=== PATIENT | male | born 1940 | race Caucasian/White ===

== ENCOUNTER 2017-10-06 10:10 | Inpatient (IN) | payer MEDICARE, BC ==
[2017-10-06] MEDS ORDERED: ONDANSETRON 4 MG/2 ML VIAL IVP STA (10:39)
[2017-10-06] MEDS ORDERED: SODIUM CHLORIDE 0.9% 1,000 ML IV STA ×2 (10:39)
[2017-10-06] MEDS ORDERED: MORPHINE SULFATE 2 MG/ML SYRINGE IV STA (10:39)
[2017-10-06] MEDS ORDERED: methylPREDNISolone SOD SUCCI 125 MG/2 ML VIAL IV STA (10:40)
[2017-10-06] MEDS ORDERED: diphenhydrAMINE 50 MG/ML 1 ML VIAL IVP STA (10:41)
[2017-10-06] MEDS ORDERED: FAMOTIDINE 20 MG/2 ML VIAL IV STA (10:41)
[2017-10-06 11:25] LABS: Albumin 3.9 g/dL (3.5-5.0); Basophils % (A) 0 %; Calcium 9.4 mg/dL (8.4-10.2); Eosinophils # (A) 0.1 k/uL (0-0.7); Eosinophils % (A) 1 %; HGB 15.3 gm/dL (13.0-17.5); Lymphocytes # (A) 0.3 k/uL (1.0-4.8); Lymphocytes % (A) 3 %; MCH 32.3 pg (25.0-35.0); MCHC 34.7 g/dL (31.0-37.0); MCV 93.1 fL (80.0-100.0); Monocytes # (A) 0.1 k/uL (0-1.0); Monocytes % (A) 2 %; Neutrophils # (A) 8.3 k/uL (1.3-7.7); Neutrophils % (A) 94 %; Platelet Count 179 k/uL (150-450); Potassium 4.6 mmol/L (3.5-5.1); RBC 4.73 m/uL (4.30-5.90); RDW 13.3 % (11.5-15.5); Total Bilirubin 3.8 mg/dL (0.2-1.3); Total Protein 6.6 g/dL (6.3-8.2); WBC 8.8 k/uL (3.8-10.6)
--- NOTE | 2017-10-06 11:57 | ED ---
Abdominal Pain HPI - General Chief Complaint: Abdominal Pain Stated Complaint: Abd Pain Time Seen by Provider: 10/06/17 10:29 Source: patient Mode of arrival: ambulatory Limitations: no limitations - History of Present Illness Initial Comments: 7 years old male was seen at urgent care this morning they felt he needs to be sorted out for gallbladder disease he has abdominal pain and the epigastric pain for last 3 days been nauseous throughout twice has a history of colon cancer and had a partial colectomy done years ago. He has been moving his bowels well he denies any chest pain no shortness of breath no pleuritic chest pain had a fever and chills pain right now is 8/10 system is unremarkable - Related Data Home Medications Medication Instructions Recorded Confirmed Benazepril [Lotensin] 40 mg PO DAILY 12/06/15 10/06/17 amLODIPine BESYLATE [Norvasc] 10 mg PO DAILY 12/06/15 10/06/17 Metoprolol Succinate [Toprol XL] 25 mg PO DAILY 10/06/17 10/06/17 Ranitidine HCl 150 mg PO HS 10/06/17 10/06/17 Allergies Allergy/AdvReac Type Severity Reaction Status Date / Time povidone-iodine Allergy Rash/Hives Verified 10/06/17 10:15 [From Betadine] soap [From Betadine] Allergy Rash/Hives Verified 10/06/17 10:15 Review of Systems ROS Statement: Those systems with pertinent positive or pertinent negative responses have been documented in the HPI. ROS Other: All systems not noted in ROS Statement are negative. Past Medical History Past Medical History: Cancer, GERD/Reflux, Hypertension Additional Past Medical History / Comment(s): Hx. of colon cancer dx. in 2012. States did not need chemo or radiation therapy.HAD PNE VACCINE AFTER AGE 67 NOT SURE OF DATE. History of Any Multi-Drug Resistant Organisms: None Reported Past Surgical History: Bowel Resection, Orthopedic Surgery Additional Past Surgical History / Comment(s): Rotator cuff R shoulder, surgery for colon cancer.umb hernia repair Past Anesthesia/Blood Transfusion Reactions: No Reported Reaction Past Psychological History: No Psychological Hx Reported Smoking Status: Former smoker Past Alcohol Use History: None Reported, Rare Past Drug Use History: None Reported - Past Family History Mother Family Medical History: Myocardial Infarction ([place]) Additional Family Medical History / Comment(s): mom is age 95 Sister(s) Family Medical History: CVA/TIA Father Additional Family Medical History / Comment(s): WHEN PT WAS 18 MONTHS OLD- ELECTROCUTED AT WORK General Exam - General Exam Comments Initial Comments: General: The patient is awake and alert, in no distress, and does not appear acutely ill. Skin: Skin is warm and dry and no rashes or lesions are noted. Eye: Pupils are equal, round and reactive to light, extra-ocular movements are intact; there is normal conjunctiva bilaterally. Ears, nose, mouth and throat: There are moist mucous membranes and no oral lesions. Neck: The neck is supple, there is no tenderness or JVD. Cardiovascular: There is a regular rate and rhythm. No murmur, rub or gallop is appreciated. Respiratory: To auscultation bilateral, no wheezing no rhonchi no distress respiratory farris noticed Gastrointestinal: Tender in epigastric area tender over the right quadrant area and actually she is tender on the right half of the abdomen right from the right lower quadrant. Right upper quadrant area positive bowel sounds no guarding no rebounds no signs of peritonitis at this point Back: There is no tenderness to palpation in the midline. There is no obvious deformity. Musculoskeletal: Normal ROM, no tenderness, There is no pedal edema. There is no calf tenderness or swelling. No cords were appreciated. Neurological: CN II-XII intact, Cranial nerves III through XII are intact. There are no obvious motor or sensory deficits. Coordination appears grossly intact. Speech is normal. Psychiatric: Cooperative, appropriate mood & affect, normal judgment. Limitations: no limitations Course Vital Signs 10/06/17 10:12 Temperature 98.4 F Pulse Rate 99 Respiratory 18 Rate Blood Pressure 150/61 O2 Sat by Pulse [address] reports are pending at this point CBC is normal, LFTs elevated total bili is elevated is 3.8 ALT is 108 AST is 203 serum creatinine is 1.[address] report is available disposition be finalized Dr. Rico paced at term 1235, CT of the abdomen is reviewed right from the prostate and now a question of a mass? acute cholecystitis all these financial diagnosis would be discussed with the Dr. Le Medical Decision Making - Lab Data Result diagrams: 10/06/17 11:03 10/06/17 11:03 Lab Results 06/23/18 06/23/18 06/23/18 Range/Units 11:03 11:03 11:55 WBC 8.8 (3.8-10.6) k/uL RBC 4.73 (4.30-5.90) m/uL Hgb 15.3 (13.0-17.5) gm/dL Hct 44.0 (39.0-53.0) % MCV 93.1 (80.0-100.0) fL MCH 32.3 (25.0-35.0) pg MCHC 34.7 (31.0-37.0) g/dL RDW 13.3 (11.5-15.5) % Plt Count 179 (150-450) k/uL Neutrophils % 94 % Lymphocytes % 3 % Monocytes % 2 % Eosinophils % 1 % Basophils % 0 % Neutrophils # 8.3 H (1.3-7.7) k/uL Lymphocytes # 0.3 L (1.0-4.8) k/uL Monocytes # 0.1 (0-1.0) k/uL Eosinophils # 0.1 (0-0.7) k/uL Basophils # 0.0 (0-0.2) k/uL Sodium 136 L (137-145) mmol/L Potassium 4.6 (3.5-5.1) mmol/L Chloride 97 L (98-107) mmol/L Carbon Dioxide 26 (22-30) mmol/L Anion Gap 13 mmol/L BUN 16 (9-20) mg/dL Creatinine 1.33 H (0.66-1.25) mg/dL Est GFR (CKD-EPI)AfAm 60 (>60 ml/min/1.73 sqM) Est GFR (CKD-EPI)NonAf 52 (>60 ml/min/1.73 sqM) Glucose 152 H (74-99) mg/dL Calcium 9.4 (8.4-10.2) mg/dL Total Bilirubin 3.8 H (0.2-1.3) mg/dL AST 203 H (17-59) U/L ALT 108 H (21-72) U/L Alkaline Phosphatase 110 (38-126) U/L Total Protein 6.6 (6.3-8.2) g/dL Albumin 3.9 (3.5-5.0) g/dL Amylase 33 (30-110) U/L Lipase 64 (23-300) U/L Urine Color Yellow Urine Appearance Clear (Clear) Urine pH 6.0 (5.0-8.0) Ur Specific Oneco 1.035 (1.001-1.035) Urine Protein 2+ H (Negative) Urine Glucose (UA) Negative (Negative) Urine Ketones Trace H (Negative) Urine Blood Small H (Negative) Urine Nitrite Negative (Negative) Urine Bilirubin 1+ H (Negative) Urine Urobilinogen <2.0 (<2.0) mg/dL Ur Leukocyte Esterase Negative (Negative) Urine RBC 1 (0-5) /hpf Urine WBC 1 (0-5) /hpf Hyaline Casts 1 (0-2) /lpf Urine Mucus Occasional H (None) /hpf Disposition Clinical Impression: Acute cholecystitis, Duodenitis Disposition: ADMITTED IP TO THIS HOSP Condition: Good Referrals: Navid Burleson MD [Primary Care Provider] - 1-2 days
[2017-10-06 12:15] LABS: Appearance,Urine Clear (Clear); Bilirubin,Urine 1+ (Negative); Blood,Urine Small (Negative); Color,Urine Yellow; Glucose,Urine (UA) Negative (Negative); Hyaline Casts,Urine 1 /lpf (0-2); Ketones,Urine Trace (Negative); Leukocyte Esterase,Urine Negative (Negative); Mucus,Urine Occasional /hpf; Nitrite,Urine Negative (Negative); Protein,Urine 2+ (Negative); RBC,Urine 1 /hpf (0-5); Specific Gravity,Urine 1.035 (1.001-1.035); Urobilinogen,Urine <2.0 mg/dL (<2.0); WBC,Urine 1 /hpf (0-5)
--- NOTE | 2017-10-06 12:20 | CT ---
EXAMINATION TYPE: CT abdomen pelvis w con DATE OF EXAM: 10/06/2017 COMPARISON: 10/12/2015 HISTORY: 77-year-old male complains of generalized abdominal pains, nausea, vomiting, and diarrhea. TECHNIQUE: Contiguous axial scanning of the abdomen and pelvis following administration of 100 ml Iso kaitlin 300 IV contrast. Delayed images through the kidneys and coronal/sagittal reconstructions perform ed. CT DLP: 979.2 mGycm Automated exposure control for dose reduction was used. FINDINGS: Heart normal size without pericardial effusion. Strandy areas of atelectasis in the lung bases. No pl eural effusion. Small hiatal hernia. No focal liver lesion or biliary ductal dilatation. Portal venous system is patent. The gallbladder is hydropic measuring 4.4 cm wide with moderate to severe surrounding inflammatory fa t stranding in the right upper quadrant and some mild tracking edema. There is some focal mural based thickening along the fundus of the gallbladder measuring 2.4 cm. There is additional wall thickening of the second portion of the duodenum. Incidentally, there is a d iverticulum projecting into the pancreatic head region. Adrenal glands, kidneys, spleen, and atrophic pancreas show no gross quality. A prominent 1.3 cm portacaval lymph node remains not enlarged by CT size criteria. Alanna mesentery unchanged from 2016. No dilated small bowel, free fluid, or free air. Bowel resection and anastomosis changes at the right lower quadrant likely ileocolonic anastomosis. S cattered mild stool burden and mild diverticulosis of the sigmoid colon. Rectus diastases of the supraumbilical portion measuring 8.0 cm wide. Bladder partially distended. Prostate gland is enlarged measuring 6.1 cm wide. No abnormal fluid satish ection in the pelvis or pelvic lymphadenopathy. Bones: Degenerative changes of the hips. No osseous destructive process. IMPRESSION: 1. HYDROPIC GALLBLADDER WITH MODERATE TO SEVERE SURROUNDING INFLAMMATORY CHANGES IN THE RIGHT UPPER Q UADRANT. CORRELATE FOR ACUTE CHOLECYSTITIS. 2. THE ADJACENT SECOND PORTION OF THE DUODENUM IS ALSO THICKENED. THIS COULD BE REACTIVE INFLAMMATION . ACTIVE PEPTIC ULCER DISEASE AND DUODENITIS IS AN ALTERNATIVE CONSIDERATION FOR THE RIGHT UPPER QUAD RANT INFLAMMATION. 3. FOCAL 2.4 CM WALL THICKENING AT THE GALLBLADDER FUNDUS COULD REPRESENT ADENOMYOMATOSIS OR SMALL EA RLY NEOPLASM. 4. PROSTATOMEGALY (6.1 CM WIDE), MILD SIGMOID DIVERTICULOSIS, AND SMALL HIATAL HERNIA.
[2017-10-06] MEDS ORDERED: SODIUM CHLORIDE 0.9% 1,000 ML IV ONE (12:39)
[2017-10-06] MEDS ORDERED: PIPERACILLIN-TAZOBACTAM 3.375 GM in DEXTROSE/WATER 1 50ML.BAG IVPB STA (12:39)
[2017-10-06] MEDS ORDERED: metroNIDAZOLE-NS PMX 500 MG in SALINE 1 100ML.BAG IVPB STA (12:40)
[2017-10-06] MEDS ORDERED: NALOXONE 0.4 MG/ML 1 ML VIAL IV PRN (12:43)
[2017-10-06] MEDS ORDERED: ONDANSETRON 4 MG/2 ML VIAL IVP PRN (12:43)
[2017-10-06] MEDS ORDERED: HYDROmorphone 0.5 MG/0.5 ML SYRINGE IVP PRN (12:43)
[2017-10-06] MEDS ORDERED: 0.9% NACL WITH KCL 20 MEQ/L 1,000 ML IV SCH (13:30)
[2017-10-06 14:03] VITALS: BMI 30.9
[2017-10-06] MEDS: SODIUM CHLORIDE 0.9% 1,000 ML IV SCH (14:40)
--- NOTE | 2017-10-06 17:50 | P.GSCN ---
History of Present Illness Consult date: 10/06/17 History of present illness: 77-year-old male presents to the emergency department with complaints of abdominal pain. He states that the pain is mostly in his epigastrium and right upper quadrant. He does complain of some occasional radiation to his back and right shoulder. He complains of nausea and episodes of emesis secondary to this pain. He states that he believes he has had pain like this previously that resolved on its own. He states he has never been told he has had any gallbladder disease. He does have a history of colon cancer and has had colon resection and is up-to-date with colonoscopy. He currently states he is feeling comfortable. He denied any fevers, chills, chest pain or shortness of breath. The patient did have a workup in the emergency department that does show inflammatory changes around the gallbladder and duodenal bulb. He also was noted to have an elevated total bilirubin of 3.8 and transaminitis. He has no additional complaints at this time. Review of Systems All systems: negative Past Medical History Past Medical History: Cancer, GERD/Reflux, Hypertension Additional Past Medical History / Comment(s): Hx. of colon cancer dx. in 2012. States did not need chemo or radiation therapy.HAD PNE VACCINE AFTER AGE 67 NOT SURE OF DATE. History of Any Multi-Drug Resistant Organisms: None Reported Past Surgical History: Bowel Resection, Orthopedic Surgery Additional Past Surgical History / Comment(s): Rotator cuff R shoulder 2001, surgery for colon cancer.hernia repair Past Anesthesia/Blood Transfusion Reactions: No Reported Reaction Past Psychological History: No Psychological Hx Reported Smoking Status: Former smoker Past Alcohol Use History: None Reported, Rare Additional Past Alcohol Use History / Comment(s): Quit smoking in 1971, heavy smoker @ times. Started as a teenager. Past Drug Use History: None Reported - Past Family History Mother Family Medical History: Hypertension, Myocardial Infarction ([place]), Thyroid Disorder Additional Family Medical History / Comment(s): mom is age 97 Sister(s) Family Medical History: CVA/TIA Father Additional Family Medical History / Comment(s): WHEN PT WAS 18 MONTHS OLD- ELECTROCUTED AT WORK Medications and Allergies Home Medications Medication Instructions Recorded Confirmed Type Benazepril [Lotensin] 40 mg PO DAILY 12/06/15 10/06/17 History amLODIPine BESYLATE [Norvasc] 10 mg PO DAILY 12/06/15 10/06/17 History Metoprolol Succinate [Toprol XL] 25 mg PO DAILY 10/06/17 10/06/17 History Multivitamins, Thera [Multivitamin 1 tab PO DAILY 10/06/17 10/06/17 History (formulary)] Ranitidine HCl 150 mg PO BID 10/06/17 10/06/17 History Allergies Allergy/AdvReac Type Severity Reaction Status Date / Time povidone-iodine Allergy Rash/Hives Verified 10/06/17 14:05 [From Betadine] soap [From Betadine] Allergy Rash/Hives Verified 10/06/17 14:05 Surgical - Exam Osteopathic Statement: *. No significant issues noted on an osteopathic structural exam other than those noted in the History and Physical/Consult. Vital Signs Temp Pulse Resp BP Pulse Ox 98.4 F 99 18 150/61 98 10/06/17 10:12 10/06/17 10:12 10/06/17 10:12 10/06/17 10:12 10/06/17 10:12 - General well nourished, no distress - Eyes normal ocular movement - ENT normal mucosa, no hearing loss - Neck no masses, trachea midline - Respiratory No difficulty with respiration - Abdomen Soft, tender in epigastrium and right upper quadrant, mildly distended, no rebound, no guarding, does have previous surgical scars and midline and some apparent laparoscopic incisions that have healed well - Neurologic normal sensation - Psychiatric oriented to time, oriented to person, oriented to place Results - Labs 10/06/17 11:03 10/06/17 11:03 Abnormal Lab Results - Last 24 Hours (Table) 10/06/17 10/06/17 10/06/17 Range/Units 11:03 11:03 11:55 Neutrophils # 8.3 H (1.3-7.7) k/uL Lymphocytes # 0.3 L (1.0-4.8) k/uL Sodium 136 L (137-145) mmol/L Chloride 97 L (98-107) mmol/L Creatinine 1.33 H (0.66-1.25) mg/dL Glucose 152 H (74-99) mg/dL Total Bilirubin 3.8 H (0.2-1.3) mg/dL AST 203 H (17-59) U/L ALT 108 H (21-72) U/L Urine Protein 2+ H (Negative) Urine Ketones Trace H (Negative) Urine Blood Small H (Negative) Urine Bilirubin 1+ H (Negative) Urine Mucus Occasional H (None) /hpf Diabetes panel 10/06/17 Range/Units 11:03 Sodium 136 L (137-145) mmol/L Potassium 4.6 (3.5-5.1) mmol/L Chloride 97 L (98-107) mmol/L Carbon Dioxide 26 (22-30) mmol/L BUN 16 (9-20) mg/dL Creatinine 1.33 H (0.66-1.25) mg/dL Glucose 152 H (74-99) mg/dL Calcium 9.4 (8.4-10.2) mg/dL AST 203 H (17-59) U/L ALT 108 H (21-72) U/L Alkaline Phosphatase 110 (38-126) U/L Total Protein 6.6 (6.3-8.2) g/dL Albumin 3.9 (3.5-5.0) g/dL Calcium panel 10/06/17 Range/Units 11:03 Calcium 9.4 (8.4-10.2) mg/dL Albumin 3.9 (3.5-5.0) g/dL Pituitary panel 10/06/17 Range/Units 11:03 Sodium 136 L (137-145) mmol/L Potassium 4.6 (3.5-5.1) mmol/L Chloride 97 L (98-107) mmol/L Carbon Dioxide 26 (22-30) mmol/L BUN 16 (9-20) mg/dL Creatinine 1.33 H (0.66-1.25) mg/dL Glucose 152 H (74-99) mg/dL Calcium 9.4 (8.4-10.2) mg/dL Adrenal panel 10/06/17 Range/Units 11:03 Sodium 136 L (137-145) mmol/L Potassium 4.6 (3.5-5.1) mmol/L Chloride 97 L (98-107) mmol/L Carbon Dioxide 26 (22-30) mmol/L BUN 16 (9-20) mg/dL Creatinine 1.33 H (0.66-1.25) mg/dL Glucose 152 H (74-99) mg/dL Calcium 9.4 (8.4-10.2) mg/dL Total Bilirubin 3.8 H (0.2-1.3) mg/dL AST 203 H (17-59) U/L ALT 108 H (21-72) U/L Alkaline Phosphatase 110 (38-126) U/L Total Protein 6.6 (6.3-8.2) g/dL Albumin 3.9 (3.5-5.0) g/dL - Imaging CT scan - abdomen: report reviewed CT scan - pelvis: report reviewed Assessment and Plan (1) Acute cholecystitis Narrative/Plan: 77-year-old male with acute cholecystitis - Due to elevated total bilirubin, GI evaluation is pending for a possibility of choledocholithiasis - Continue antibiotics at this time - Keep patient nothing by mouth - I did discuss plan for surgical treatment with the patient and the patient's family. This will be pending any GI intervention that may be necessary. - Will continue to follow and make recommendations. Thank you for this consultation, I look forward in providing in this patient's care. Current Visit: Yes Status: Acute Code(s): K81.0 - ACUTE CHOLECYSTITIS SNOMED Code(s): 83569458
[2017-10-06] MEDS ORDERED: TEMAZEPAM 15 MG CAP PO PRN (18:04)
[2017-10-06] MEDS ORDERED: ALPRAZolam 0.25 MG TAB PO PRN (18:04)
[2017-10-06] MEDS: FAMOTIDINE 20 MG TAB PO SCH (20:41)
[2017-10-06] MEDS: HEPARIN SODIUM,PORCINE 5,000 UNIT/ML 1 ML VIAL SQ SCH (20:42)
[2017-10-06] MEDS: PIPERACILLIN-TAZOBACTAM 3.375 GM in DEXTROSE/WATER 1 50ML.BAG IVPB SCH (21:07)
[2017-10-07] MEDS: SODIUM CHLORIDE 0.9% 1,000 ML IV SCH ×3 (03:37→20:31)
[2017-10-07 07:11] LABS: Basophils % (A) 0 %; Eosinophils # (A) 0.1 k/uL (0-0.7); Eosinophils % (A) 1 %; HCT 40.2 % (39.0-53.0); HGB 13.8 gm/dL (13.0-17.5); Lymphocytes # (A) 0.4 k/uL (1.0-4.8); Lymphocytes % (A) 2 %; MCH 32.2 pg (25.0-35.0); MCHC 34.2 g/dL (31.0-37.0); MCV 94.1 fL (80.0-100.0); Mean Platelet Volume 7.5; Monocytes # (A) 0.5 k/uL (0-1.0); Monocytes % (A) 3 %; Neutrophils % (A) 94 %; Platelet Count 162 k/uL (150-450); RBC 4.28 m/uL (4.30-5.90); RDW 13.5 % (11.5-15.5); WBC 19.2 k/uL (3.8-10.6)
[2017-10-07 07:34] LABS: Albumin 3.1 g/dL (3.5-5.0); Bilirubin, Conjugated 2.6 mg/dL (0.0-0.3); Bilirubin, Delta 1.3 mg/dL (0.0-0.2); Bilirubin,Unconjugated 1.7 mg/dL (0.0-1.1); Calcium 8.3 mg/dL (8.4-10.2); Potassium 4.4 mmol/L (3.5-5.1); Total Bilirubin 5.6 mg/dL (0.2-1.3); Total Protein 5.6 g/dL (6.3-8.2)
--- NOTE | 2017-10-07 07:58 | HP ---
HISTORY AND PHYSICAL DATE OF SERVICE: 10/06/2017 CHIEF COMPLAINT: Abdominal pain. HISTORY OF PRESENT ILLNESS: This 77-year-old gentleman with a past medical history of multiple medical problems including history of hypertension, history of GERD, history of bowel resection, history of nicotine dependence being followed by Dr. Burleson in the outpatient setting, was complaining of abdominal pain. The patient came to [facility] and admitted for further evaluation and treatment. Evaluation in the ER showed elevated LFTs and the patient also had a CT scan of the abdomen and pelvis which showed evidence of hydropic gallbladder with moderate to severe surrounding inflammatory changes and the patient was admitted for further evaluation and treatment. There is no history of any fever, rigors. No history of headache, loss of consciousness, seizures. PAST MEDICAL HISTORY: History of GERD, hypertension, history of colon cancer. MEDICATIONS: Prior to admission, home medications are: 1. Norvasc 10 mg p.o. daily. 2. Ranitidine 150 mg b.i.d. 3. Multivitamins one p.o. daily. 4. Toprol-XL 225 mg daily. 5. 40 mg daily. ALLERGIES: IODINE and . FAMILY HISTORY: History of hypertension, myocardial infarction and hypothyroidism. SOCIAL HISTORY: Previous history of smoking. No history of current smoking or alcohol intake. REVIEW OF SYSTEMS: ENT: No diminished hearing or vision. CARDIOVASCULAR: No angina or palpitations. RESPIRATORY: As mentioned earlier. GI no nausea. : No dysuria. NERVOUS SYSTEM: No numbness or weakness. ALLERGY/ IMMUNOLOGY: No asthma or hay fever. MUSCULOSKELETAL: As mentioned earlier. HEMATOLOGY/ONCOLOGY: No history of anemia. ENDOCRINE: No history of diabetes or hypothyroidism. CONSTITUTIONAL: As mentioned earlier. DERMATOLOGY: Negative. RHEUMATOLOGY: Negative. PSYCHIATRIC: As mentioned earlier. PHYSICAL EXAMINATION: Alert, oriented times three, pulse 71, blood pressure 105/54, respirations 16, temperature is 97 degrees, pulse ox 91% on room air. HEENT is conjunctivae normal. Oral mucosa moist. Neck is no jugular venous distention. No carotid bruits. No lymph node enlargement. Cardiovascular S1-S2 muffled. No S3, no S4. Respiratory: Breath sounds diminished in the bases. No rhonchi and no crackles. ABDOMEN: Soft. Mild diffuse tenderness in the right upper quadrant present. No guarding. No rigidity. McBurney point tenderness present. No ascites. Bowel sounds present. LEGS: No edema and no swelling. NERVOUS SYSTEM: Higher functions as mentioned earlier, moves all 4 limbs, no focal motor or sensory deficits. Lymphatics: No lymph nodes palpable in the neck, axillae or groin. SKIN: No ulcer, rash or bleeding. LABS: CBC within normal limits. Cat scan noted. Sodium 136, total bilirubin 3.8, AST is 203 and ALT is 108. Alkaline phosphatase normal. ASSESSMENT: 1. Acute cholecystitis. 2. Elevated bilirubin with increased AST and ALT. 3. Hyponatremia. 4. History of gastroesophageal reflux disease. 5. Hypertension. 6. History of colon cancer. 7. History of bowel resection. 8. History of nicotine dependence. RECOMMENDATIONS AND DISCUSSION: In this 77-year-old gentleman who presented with multiple complex medical issues , we will monitor the patient closely, continue the current medications, management and symptomatic treatment. Broad-spectrum IV antibiotics initiated. Otherwise I would also recommend a surgical and gastroenterology evaluation. Resume the home medications. Monitor blood pressure closely. DVT prophylaxis. Prognosis guarded because of multiple complex medical issues. Further recommendations to follow. MMODL / IJN: [id number] / BLOSSOM
--- NOTE | 2017-10-07 09:16 | P.PN ---
Subjective Progress Note Date: 10/07/17 Patient seen and examined at bedside. States he only has right upper quadrant pain is somebody presses on that area. Denies any nausea or emesis. Laboratory values have returned with continued increasing total bilirubin to 5.6. Leukocytosis noted at 17. Objective - Vital Signs Vital signs: Vital Signs Temp 98.7 F 10/07/17 09:07 Pulse 80 10/07/17 09:07 Resp 18 10/07/17 09:07 BP 138/66 10/07/17 09:07 Pulse Ox 96 10/07/17 09:07 Intake & Output 10/06/17 10/07/17 10/07/17 18:59 06:59 18:59 Intake Total 250 Balance 250 Weight 87.09 kg Intake: Intake, IV Titration 250 Amount 0.9% NaCl with KCl 20 Meq 200 /l 1,000 ml @ 100 mls/hr IV .Q10H JUDIT Rx#: [id number] Piperacillin-Tazobactam 3 50 .375 gm In Dextrose/Water 1 50ml.bag @ 12.5 mls/hr IVPB Q8HR JUDIT Rx#: [id number] - Constitutional General appearance: Present: cooperative, no acute distress - Respiratory Details: No difficulty with respiration - Gastrointestinal Gastrointestinal Comment(s): Soft, tender to palpation in the right upper quadrant, nondistended, no rebound , no guarding - Psychiatric Psychiatric: Present: A&O x's 3, appropriate affect - Labs CBC & Chem 7: 10/07/17 06:54 10/07/17 06:54 Labs: Abnormal Lab Results - Last 24 Hours (Table) 10/06/17 10/06/17 10/06/17 Range/Units 11:03 11:03 11:55 WBC (3.8-10.6) k/uL RBC (4.30-5.90) m/uL Neutrophils # 8.3 H (1.3-7.7) k/uL Lymphocytes # 0.3 L (1.0-4.8) k/uL Sodium 136 L (137-145) mmol/L Chloride 97 L (98-107) mmol/L BUN (9-20) mg/dL Creatinine 1.33 H (0.66-1.25) mg/dL Glucose 152 H (74-99) mg/dL Calcium (8.4-10.2) mg/dL Total Bilirubin 3.8 H (0.2-1.3) mg/dL Conjugated Bilirubin (0.0-0.3) mg/dL Unconjugated Bilirubin (0.0-1.1) mg/dL Delta Bilirubin (0.0-0.2) mg/dL AST 203 H (17-59) U/L ALT 108 H (21-72) U/L Total Protein (6.3-8.2) g/dL Albumin (3.5-5.0) g/dL Urine Protein 2+ H (Negative) Urine Ketones Trace H (Negative) Urine Blood Small H (Negative) Urine Bilirubin 1+ H (Negative) Urine Mucus Occasional H (None) /hpf 10/07/17 10/07/17 Range/Units 06:54 06:54 WBC 19.2 H (3.8-10.6) k/uL RBC 4.28 L (4.30-5.90) m/uL Neutrophils # 18.0 H (1.3-7.7) k/uL Lymphocytes # 0.4 L (1.0-4.8) k/uL Sodium (137-145) mmol/L Chloride (98-107) mmol/L BUN 28 H (9-20) mg/dL Creatinine 1.39 H (0.66-1.25) mg/dL Glucose 182 H (74-99) mg/dL Calcium 8.3 L (8.4-10.2) mg/dL Total Bilirubin 5.6 H (0.2-1.3) mg/dL Conjugated Bilirubin 2.6 H (0.0-0.3) mg/dL Unconjugated Bilirubin 1.7 H (0.0-1.1) mg/dL Delta Bilirubin 1.3 H (0.0-0.2) mg/dL AST 92 H (17-59) U/L ALT 106 H (21-72) U/L Total Protein 5.6 L (6.3-8.2) g/dL Albumin 3.1 L (3.5-5.0) g/dL Urine Protein (Negative) Urine Ketones (Negative) Urine Blood (Negative) Urine Bilirubin (Negative) Urine Mucus (None) /hpf Assessment and Plan (1) Acute cholecystitis Narrative/Plan: 77-year-old male with acute cholecystitis, concern for choledocholithiasis - Due to elevated total bilirubin, GI evaluation is pending for a possibility of choledocholithiasis, we will await their recommendation - Continue antibiotics at this time, leukocytosis of 17,000 noted - Keep patient nothing by mouth - I did discuss plan for surgical treatment with the patient and the patient's family. This will be pending any GI intervention that may be necessary. - Will continue to follow and make recommendations. Current Visit: Yes Status: Acute Code(s): K81.0 - ACUTE CHOLECYSTITIS SNOMED Code(s): 59318430
[2017-10-07] MEDS: HEPARIN SODIUM,PORCINE 5,000 UNIT/ML 1 ML VIAL SQ SCH ×2 (09:29→20:27)
[2017-10-07] MEDS: PIPERACILLIN-TAZOBACTAM 3.375 GM in DEXTROSE/WATER 1 50ML.BAG IVPB SCH ×2 (09:55→15:43)
[2017-10-07] MEDS: amLODIPine 10 MG TAB PO SCH (10:37)
[2017-10-07] MEDS: METOPROLOL SUCCINATE (ER) 25 MG TAB.ER.24H PO SCH (10:37)
[2017-10-07] MEDS: LISINOPRIL 20 MG TAB PO SCH (10:37)
[2017-10-07] MEDS: PANTOPRAZOLE 40 MG/10 ML VIAL IV SCH (10:38)
[2017-10-07] MEDS: FAMOTIDINE 20 MG TAB PO SCH (20:28)
--- NOTE | 2017-10-07 23:01 | PN ---
PROGRESS NOTE DATE OF SERVICE: 10/07/2017. INTERVAL HISTORY: This 77-year-old gentleman who was admitted with abdominal pain had features of acute cholecystitis, the patient had elevated LFTs. Dr. Flores is also following the patient closely. No fever and no cough. PHYSICAL EXAM: Alert and oriented times three. Pulse is 81, blood pressure 124/67, respirations 16, temperature 97.9, pulse ox 94% on room air. HEENT: Conjunctivae normal. NECK: No jugular venous distention. CARDIOVASCULAR: S1, S2 muffled. RESPIRATION: Breath sounds diminished in the bases. No rhonchi and no crackles. ABDOMEN: Soft, minimal discomfort. LEGS: No edema and no swelling. CENTRAL NERVOUS SYSTEM: Higher functions as mentioned earlier. Moves all four limbs. No focal deficits. Lymphatics: No lymph nodes palpable in the neck, axillae or groin. SKIN: No ulcer, rash or bleeding. LABS: WBC 19.2 and glucose 182. Bilirubin is 5.6, AST is 92 and ALT is 106. ASSESSMENT: 1. Acute cholecystitis. 2. Elevated bilirubin, increased AST, ALT, possibly choledocholithiasis. 3. Hyponatremia, mild improved. 4. History of gastroesophageal reflux disease. 5. Hypertension. 6. History of colon cancer. 7. History of bowel resection. 8. History of nicotine dependence. RECOMMENDATIONS AND DISCUSSION: Recommend to continue current medications, management and symptomatic treatment. Otherwise closely follow with surgery and as well as Gastroenterology. We will resume the home medications, broad-spectrum IV antibiotics initiated. I would also recommend a set of cultures also. Otherwise, prognosis guarded because of multiple complex medical issues. Further recommendations to follow. DVT prophylaxis as well as proton pump inhibitors. Further recommendations to follow. MMODL / IJN: [id number] /
[2017-10-08] MEDS: PIPERACILLIN-TAZOBACTAM 3.375 GM in DEXTROSE/WATER 1 50ML.BAG IVPB SCH ×4 (00:03→23:14)
[2017-10-08] MEDS: SODIUM CHLORIDE 0.9% 1,000 ML IV SCH ×3 (00:45→23:14)
--- NOTE | 2017-10-08 06:40 | P.CONS ---
History of Present Illness - Reason for Consult Consult date: 10/07/17 Cholecystitis and suspected choledocholethiasis - History of Present Illness The patient is a 77-year-old male who presented to the emergency room with the complaint of abdominal pain of 3 days duration. The patient was evaluated in urgent care initially and was referred to the emergency room. The patient reported similar episodes in the past that were not as severe and did not last as long. Imaging studies showed hydropic gallbladder with surrounding inflammation as well as inflammation in the second portion of the duodenum. His liver enzymes where elevated including elevated bilirubin. The patient had history of colon cancer in the past and had right colon resection and has regular surveillance examinations. The patient feels improved today. His not having significant pain and did not have any nausea or vomiting. His bilirubin is up to 5.6 and total white cell count 19.2. Review of Systems Constitutional: Denies fever, chills, sweats, weight gain, or loss. HEENT: Negative for migraines, blurred vision or loss, earaches, drainage, tinnitus, oral mucosal lesions, dysphagia, or odynophagia. CARDIAC: Negative for chest pain, arrhythmias, or palpitation. RESPIRATORY: Negative for shortness of breath, hemoptysis, cough, or sputum production. GI: See HPI for pertinent findings. : Negative for hematuria, urgency, frequency, polyuria, or dysuria. MUSCULOSKELETAL: Negative for muscle aches, swelling, arthritis, and arthralgias. NEUROLOGIC: Negative for stroke or TIA. ENDOCRINE: Negative for thyroid problems. SKIN: Negative for rash or itching. PSYCHIATRIC: Negative history for depression and anxiety Past Medical History Past Medical History: Cancer, GERD/Reflux, Hypertension Additional Past Medical History / Comment(s): Hx. of colon cancer dx. in 2012. States did not need chemo or radiation therapy.HAD PNE VACCINE AFTER AGE 67 NOT SURE OF DATE. History of Any Multi-Drug Resistant Organisms: None Reported Past Surgical History: Bowel Resection, Orthopedic Surgery Additional Past Surgical History / Comment(s): Rotator cuff R shoulder 2001, surgery for colon cancer.hernia repair Past Anesthesia/Blood Transfusion Reactions: No Reported Reaction Past Psychological History: No Psychological Hx Reported Smoking Status: Former smoker Past Alcohol Use History: None Reported, Rare Additional Past Alcohol Use History / Comment(s): Quit smoking in 1971, heavy smoker @ times. Started as a teenager. Past Drug Use History: None Reported - Past Family History Mother Family Medical History: Hypertension, Myocardial Infarction ([place]), Thyroid Disorder Additional Family Medical History / Comment(s): mom is age 97 Sister(s) Family Medical History: CVA/TIA Father Additional Family Medical History / Comment(s): WHEN PT WAS 18 MONTHS OLD- ELECTROCUTED AT WORK Medications and Allergies Home Medications Medication Instructions Recorded Confirmed Type Benazepril [Lotensin] 40 mg PO DAILY 12/06/15 10/06/17 History amLODIPine BESYLATE [Norvasc] 10 mg PO DAILY 12/06/15 10/06/17 History Metoprolol Succinate [Toprol XL] 25 mg PO DAILY 10/06/17 10/06/17 History Multivitamins, Thera [Multivitamin 1 tab PO DAILY 10/06/17 10/06/17 History (formulary)] Ranitidine HCl 150 mg PO BID 10/06/17 10/06/17 History Allergies Allergy/AdvReac Type Severity Reaction Status Date / Time povidone-iodine Allergy Rash/Hives Verified 10/06/17 14:05 [From Betadine] soap [From Betadine] Allergy Rash/Hives Verified 10/06/17 14:05 Physical Exam Vitals: Vital Signs Temp Pulse Pulse Pulse Pulse Resp BP 10/07/17 09:07 98.7 F 80 18 10/07/17 02:59 97.0 F L 70 16 10/06/17 20:41 97.0 F L 71 16 10/06/17 14:00 98.9 F 95 16 10/06/17 13:33 99.4 F 91 16 101/51 BP Pulse Ox 10/07/17 09:07 138/66 96 10/07/17 02:59 105/52 93 L 10/06/17 20:41 105/54 91 L 10/06/17 14:00 113/67 93 L 10/06/17 13:33 96 Intake and Output 10/06/17 10/07/17 10/07/17 22:59 06:59 14:59 Intake Total 250 Balance 250 Intake: Intake, IV Titration 250 Amount 0.9% NaCl with KCl 20 Meq 200 /l 1,000 ml @ 100 mls/hr IV .Q10H [facility] Rx#: [id number] Piperacillin-Tazobactam 3 50 .375 gm In Dextrose/Water 1 50ml.bag @ 12.5 mls/hr IVPB Q8HR [facility] Rx#: [id number] General appearance: The patient is alert, oriented, in no acute distress. HET: Head is normocephalic and atraumatic. Pupils are equal and reactive. Oropharynx is clear without lesions. Neck: Supple without lymphadenopathy. Trachea midline. Heart: S1 S2. Regular rate and rhythm. Lungs: No crackles or wheezes are heard. No dullness to percussion. Abdomen: Soft, tender in right upper quadrant, nondistended with bowel sounds. No peritoneal signs. No palpable organomegaly or masses. Extremities: Normal skin color and turgor. No cyanosis, rash, ulceration, clubbing, or edema. Radial and pedal pulses are 2/4 bilaterally. Neurological: No focal deficits. Strength and sensation are grossly intact. Results CBC & Chem 7: 10/07/17 06:54 10/07/17 06:54 Labs: Abnormal Lab Results - Last 24 Hours (Table) 10/07/17 10/07/17 Range/Units 06:54 06:54 WBC 19.2 H (3.8-10.6) k/uL RBC 4.28 L (4.30-5.90) m/uL Neutrophils # 18.0 H (1.3-7.7) k/uL Lymphocytes # 0.4 L (1.0-4.8) k/uL BUN 28 H (9-20) mg/dL Creatinine 1.39 H (0.66-1.25) mg/dL Glucose 182 H (74-99) mg/dL Calcium 8.3 L (8.4-10.2) mg/dL Total Bilirubin 5.6 H (0.2-1.3) mg/dL Conjugated Bilirubin 2.6 H (0.0-0.3) mg/dL Unconjugated Bilirubin 1.7 H (0.0-1.1) mg/dL Delta Bilirubin 1.3 H (0.0-0.2) mg/dL AST 92 H (17-59) U/L ALT 106 H (21-72) U/L Total Protein 5.6 L (6.3-8.2) g/dL Albumin 3.1 L (3.5-5.0) g/dL Assessment and Plan Assessment: 77-year-old male with presentation and CT findings consistent with cholecystitis and possible choledocholithiasis. Plan: I agree with your current management. The patient is already on antibiotics as clinically improved. We will consider an ERCP prior to surgery especially if his bilirubin remain elevated or increase indicative of retained common bile duct stone. Should the bilirubin and the transaminases improve overnight, it will be likely that he passed a common bile duct stone. I will discuss with you and follow with you with interest. In the meantime, he is nothing by mouth.
[2017-10-08] MEDS: PANTOPRAZOLE 40 MG/10 ML VIAL IV SCH (08:01)
[2017-10-08] MEDS: METOPROLOL SUCCINATE (ER) 25 MG TAB.ER.24H PO SCH (08:01)
[2017-10-08 08:34] LABS: Basophils % (A) 0 %; Eosinophils % (A) 0 %; HCT 41.7 % (39.0-53.0); HGB 14.1 gm/dL (13.0-17.5); Lymphocytes # (A) 0.4 k/uL (1.0-4.8); Lymphocytes % (A) 2 %; MCH 31.4 pg (25.0-35.0); MCHC 33.7 g/dL (31.0-37.0); MCV 93.2 fL (80.0-100.0); Mean Platelet Volume 7.8; Monocytes % (A) 5 %; Neutrophils # (A) 18.8 k/uL (1.3-7.7); Neutrophils % (A) 92 %; Platelet Count 218 k/uL (150-450); RBC 4.48 m/uL (4.30-5.90); RDW 13.2 % (11.5-15.5); WBC 20.3 k/uL (3.8-10.6)
[2017-10-08 08:44] LABS: Albumin 3.1 g/dL (3.5-5.0); Bilirubin, Conjugated 1.6 mg/dL (0.0-0.3); Bilirubin, Delta 1.5 mg/dL (0.0-0.2); Calcium 8.6 mg/dL (8.4-10.2); Potassium 4.3 mmol/L (3.5-5.1); Total Bilirubin 4.1 mg/dL (0.2-1.3); Total Protein 5.7 g/dL (6.3-8.2)
[2017-10-08] MEDS: amLODIPine 10 MG TAB PO SCH (11:39)
[2017-10-08] MEDS: HEPARIN SODIUM,PORCINE 5,000 UNIT/ML 1 ML VIAL SQ SCH ×2 (11:40→20:51)
[2017-10-08] MEDS: LISINOPRIL 20 MG TAB PO SCH (11:40)
[2017-10-08] MEDS ORDERED: INDOMETHACIN 50MG SUPPOSITORY RECTAL ONE (13:42)
--- NOTE | 2017-10-08 16:23 | PN ---
PROGRESS NOTE DATE OF SERVICE: 10/08/2017 This 77-year-old gentleman who was admitted with acute cholecystitis also has elevated LFTs and bilirubin. Gastroenterology is planning possible ERCP. No chest pain. No palpitations. No fever. Surgery Dr. Le is following the patient closely. On exam, alert and oriented x3. Pulse 87, blood pressure 123/58, respirations 16, temperature 98.4, pulse ox 93% on room air. HEENT: Conjunctivae normal. NECK: No jugular venous distention. CARDIOVASCULAR SYSTEM: S1, S2 muffled. RESPIRATORY SYSTEM: Breath sounds diminished at the bases. No rhonchi. No crackles. ABDOMEN: Soft, obese. Mild diffuse tenderness in the right upper quadrant. No guarding. No rigidity. No mass palpable. LEGS: No edema. No swelling. NERVOUS SYSTEM: No focal deficit. LABS: WBC 20.3. Sodium 143, potassium 4.3. Glucose 121. Total bilirubin is 4.1. Conjugated bilirubin is 1.6. Delta bilirubin is 1.5. AST and ALT noted. ASSESSMENT: 1. Acute cholecystitis. 2. Elevated bilirubin, increased AST, ALT, possibly choledocholithiasis. 3. Hyponatremia, mild, improved. 4. History of gastroesophageal reflux disease. 5. Hypertension. 6. History of colon cancer. 7. History of bowel resection. 8. History of nicotine dependence. RECOMMENDATIONS AND DISCUSSION: I recommend to continue current medication, continue symptomatic treatment. Otherwise at this time I would recommend closely following with Gastroenterology. Possibly ERCP and eventually cholecystectomy. Guarded prognosis. Further recommendations to follow. MMODL / IJN: [id number] /
--- NOTE | 2017-10-08 16:23 | P.PN ---
Subjective Progress Note Date: 10/08/17 Patient seen and examined at bedside. States he continues to have some mild right upper quadrant pain. Denies any nausea and vomiting. He has no additional complaints at this time. Objective - Vital Signs Vital signs: Vital Signs Temp 98.4 F 10/08/17 07:53 Pulse 87 10/08/17 07:53 Resp 16 10/08/17 07:53 BP 123/58 10/08/17 07:53 Pulse Ox 93 L 10/08/17 07:53 Intake & Output 10/07/17 10/08/17 10/08/17 18:59 06:59 18:59 Intake Total 800 1200 Balance 800 1200 Intake: Intake, IV Titration 800 1200 Amount Sodium Chloride 0.9% 1, 800 1200 000 ml @ 100 mls/hr IV . Q10H [facility] Rx#:[id number] - Constitutional General appearance: Present: cooperative, no acute distress - EENT Eyes: Present: PERRLA - Respiratory Details: No difficulty with respiration - Gastrointestinal Gastrointestinal Comment(s): Soft, tender to palpation in right upper quadrant, nondistended, no rebound, guarding - Psychiatric Psychiatric: Present: A&O x's 3, appropriate affect - Labs CBC & Chem 7: 10/08/17 08:02 10/08/17 08:02 Labs: Abnormal Lab Results - Last 24 Hours (Table) 10/08/17 10/08/17 Range/Units 08:02 08:02 WBC 20.3 H (3.8-10.6) k/uL Neutrophils # 18.8 H (1.3-7.7) k/uL Lymphocytes # 0.4 L (1.0-4.8) k/uL Chloride 109 H (98-107) mmol/L BUN 25 H (9-20) mg/dL Glucose 121 H (74-99) mg/dL Total Bilirubin 4.1 H (0.2-1.3) mg/dL Conjugated Bilirubin 1.6 H (0.0-0.3) mg/dL Delta Bilirubin 1.5 H (0.0-0.2) mg/dL AST 140 H (17-59) U/L ALT 141 H (21-72) U/L Total Protein 5.7 L (6.3-8.2) g/dL Albumin 3.1 L (3.5-5.0) g/dL Microbiology - Last 24 Hours (Table) 10/07/17 00:20 Urine Culture - Preliminary Urine,Clean Catch Assessment and Plan (1) Acute cholecystitis Narrative/Plan: 77-year-old male with acute cholecystitis, concern for choledocholithiasis - Due to elevated total bilirubin, GI to plan for ERCP - Continue antibiotics at this time, leukocytosis of 20,000 noted - Keep patient nothing by mouth - I did discuss plan for surgical treatment with the patient and the patient's family. This will be pending any GI intervention that may be necessary. - Will continue to follow and make recommendations. Current Visit: Yes Status: Acute Code(s): K81.0 - ACUTE CHOLECYSTITIS SNOMED Code(s): 46336373
[2017-10-08] MEDS ORDERED: IV FLUID CONTINUATION 1,000 ML IV ONE ×2 (17:15)
[2017-10-08] MEDS ORDERED: PROPOFOL 10 MG/ML 20 ML VIAL IV ONE (17:16)
[2017-10-08] MEDS ORDERED: MIDAZOLAM 2 MG/2 ML VIAL ONE (17:16)
[2017-10-08] MEDS ORDERED: fentaNYL (PF) 50 MCG/ML 2 ML AMP ONE (17:16)
[2017-10-08] MEDS ORDERED: IOPAMIDOL-300 50ML BTL INJ ONE ×2 (17:29→18:13)
[2017-10-08] MEDS ORDERED: LACTATED RINGERS 1,000 ML IV ONE (18:09)
--- NOTE | 2017-10-08 18:41 | P.PCN ---
Date of Procedure: 10/08/17 Procedure(s) Performed: Procedure: Endoscopic retrograde cholangiography. Preoperative diagnosis: Cholecystitis and suspected common bile duct stone. Postoperative diagnosis: No filling defects to suggest retained common bile duct stones. Preparation and sedation: Was provided by anesthesia. Brief clinical history: The patient is a 77-year-old male who presented to the emergency room with the complaint of abdominal pain of 3 days duration. The patient was evaluated in urgent care initially and was referred to the emergency room. The patient reported similar episodes in the past that were not as severe and did not last as long. Imaging studies showed hydropic gallbladder with surrounding inflammation as well as inflammation in the second portion of the duodenum. His liver enzymes where elevated including elevated bilirubin. The patient continues to have leukocytosis and elevated bilirubin and transaminases. This evaluation is to assess for possible common bile duct stone. The details are summarized in the history and physical and dictated consultations and progress notes. Procedure: With the patient in the prone position and after informed consent and adequate sedation, I passed the Olympus video duodenoscope down the esophagus into the stomach then passed it through the pylorus into the duodenum and brought the papilla into view. 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 Initial cannulation and injection with dye resulted in opacification of the common bile duct and biliary tree. The cystic duct was filling as well as well as the gallbladder and intrahepatic biliary tree. There was no significant dilation of the common bile duct or the biliary tree. There was no filling defects to suggest retained common bile duct stone. Spot films were obtained which would be interpreted by the radiologist in a separate report. The patient tolerated the procedure well. Plan: I discussed the findings with the patient and his family. Will allow clear liquids if tolerated. Further plans based on his course.
[2017-10-09 07:25] LABS: Basophils % (A) 0 %; Eosinophils # (A) 0.1 k/uL (0-0.7); Eosinophils % (A) 1 %; HGB 12.6 gm/dL (13.0-17.5); Lymphocytes # (A) 0.5 k/uL (1.0-4.8); Lymphocytes % (A) 5 %; MCH 32.3 pg (25.0-35.0); MCHC 34.1 g/dL (31.0-37.0); MCV 94.6 fL (80.0-100.0); Mean Platelet Volume 7.3; Monocytes # (A) 0.6 k/uL (0-1.0); Monocytes % (A) 6 %; Neutrophils # (A) 9.8 k/uL (1.3-7.7); Neutrophils % (A) 88 %; Platelet Count 199 k/uL (150-450); RBC 3.92 m/uL (4.30-5.90); RDW 13.7 % (11.5-15.5); WBC 11.1 k/uL (3.8-10.6)
--- NOTE | 2017-10-09 07:39 | FL ---
Fluoroscopy History: ERCP ERCP. DR Radford. 22 secs FL. 1 image saved.
[2017-10-09 08:04] LABS: Albumin 2.6 g/dL (3.5-5.0); Bilirubin, Conjugated 0.9 mg/dL (0.0-0.3); Bilirubin, Delta 1.5 mg/dL (0.0-0.2); Bilirubin,Unconjugated 0.9 mg/dL (0.0-1.1); Calcium 7.8 mg/dL (8.4-10.2); Potassium 4.1 mmol/L (3.5-5.1); Total Bilirubin 3.3 mg/dL (0.2-1.3)
[2017-10-09] MEDS: SODIUM CHLORIDE 0.9% 1,000 ML IV SCH ×2 (08:37→15:02)
[2017-10-09] MEDS: PANTOPRAZOLE 40 MG/10 ML VIAL IV SCH (08:38)
[2017-10-09] MEDS: LISINOPRIL 20 MG TAB PO SCH (08:40)
[2017-10-09] MEDS: HEPARIN SODIUM,PORCINE 5,000 UNIT/ML 1 ML VIAL SQ SCH ×2 (08:40→20:24)
[2017-10-09] MEDS: METOPROLOL SUCCINATE (ER) 25 MG TAB.ER.24H PO SCH (08:40)
[2017-10-09] MEDS: amLODIPine 10 MG TAB PO SCH (08:40)
[2017-10-09] MEDS: PIPERACILLIN-TAZOBACTAM 3.375 GM in DEXTROSE/WATER 1 50ML.BAG IVPB SCH ×3 (08:41→22:59)
[2017-10-09 12:07] LABS: Albumin 3.3 g/dL (3.5-5.0); Bilirubin, Conjugated 1.3 mg/dL (0.0-0.3); Bilirubin, Delta 1.5 mg/dL (0.0-0.2); Bilirubin,Unconjugated 1.1 mg/dL (0.0-1.1); Total Bilirubin 3.9 mg/dL (0.2-1.3)
--- NOTE | 2017-10-09 14:56 | P.PN ---
Subjective Progress Note Date: 10/09/17 Patient seen and examined at bedside. He is comfortable. Denies any right upper quadrant pain. Denies any nausea vomiting. Tolerating clear liquid diet. ERCP was performed yesterday. Objective - Vital Signs Vital signs: Vital Signs Temp 97.7 F 10/09/17 08:36 Pulse 82 10/09/17 08:36 Resp 17 10/09/17 08:51 BP 155/77 10/09/17 08:36 Pulse Ox 96 10/09/17 08:36 Intake & Output 10/08/17 10/09/17 10/09/17 18:59 06:59 18:59 Intake Total 1400 Balance 1400 Weight 87.09 kg Intake: IV 600 Intake, IV Titration 800 Amount Sodium Chloride 0.9% 1, 800 000 ml @ 100 mls/hr IV . Q10H [facility] Rx#:[id number] Other: Voiding Method Toilet # Voids 1 1 - Constitutional General appearance: Present: cooperative, no acute distress - EENT ENT: Present: hearing grossly normal - Respiratory Details: No difficulty with respiration - Gastrointestinal Gastrointestinal Comment(s): Soft, nondistended, no rebound, nontender, no guarding - Psychiatric Psychiatric: Present: A&O x's 3, appropriate affect - Labs CBC & Chem 7: 10/09/17 06:40 10/09/17 06:40 Labs: Abnormal Lab Results - Last 24 Hours (Table) 10/09/17 10/09/17 10/09/17 Range/Units 06:40 06:40 11:34 WBC 11.1 H (3.8-10.6) k/uL RBC 3.92 L (4.30-5.90) m/uL Hgb 12.6 L (13.0-17.5) gm/dL Hct 37.0 L (39.0-53.0) % Neutrophils # 9.8 H (1.3-7.7) k/uL Lymphocytes # 0.5 L (1.0-4.8) k/uL Chloride 112 H (98-107) mmol/L BUN 22 H (9-20) mg/dL Calcium 7.8 L (8.4-10.2) mg/dL Total Bilirubin 3.3 H 3.9 H (0.2-1.3) mg/dL Conjugated Bilirubin 0.9 H 1.3 H (0.0-0.3) mg/dL Delta Bilirubin 1.5 H 1.5 H (0.0-0.2) mg/dL AST 129 H 151 H (17-59) U/L ALT 156 H 194 H (21-72) U/L Alkaline Phosphatase 147 H (38-126) U/L Total Protein 5.0 L 6.0 L (6.3-8.2) g/dL Albumin 2.6 L 3.3 L (3.5-5.0) g/dL Microbiology - Last 24 Hours (Table) 10/07/17 00:20 Urine Culture - Final Urine,Clean Catch 10/07/17 21:06 Blood Culture - Preliminary Blood No Growth after 24 hours Assessment and Plan (1) Acute cholecystitis Narrative/Plan: 77-year-old male with hyperbilirubinemia, right upper quadrant pain - ERCP was performed yesterday. There was no filling defect within the biliary tree. The gallbladder did light up after injection. There does not seem to be an obstruction of the cystic duct or common bile duct. - Leukocytosis has improved to 11,000 - I did have a long discussion with the patient and the patient's family today. Plan was originally for cholecystectomy today, however, repeat hepatic function panel did show an increase in the total bilirubin to 3.9 from 3.3 along with an increase in direct bilirubin. We do know that there is no obvious obstructive process due to the patient having an ERCP. This direct hyperbilirubinemia does not seem to correlate with acute cholecystitis along with the fact that there is no cystic duct obstruction. I will obtain an ultrasound of the right upper quadrant to evaluate the gallbladder, biliary ducts and pancreatic head to further investigate the cause of the hyperbilirubinemia. At this point, the patient denies any right upper quadrant pain and seems to be very comfortable. Any potential surgery will be on hold until this ultrasound is evaluated. Current Visit: Yes Status: Acute Code(s): K81.0 - ACUTE CHOLECYSTITIS SNOMED Code(s): 46095074
[2017-10-09 15:23] LABS: Amylase 60 U/L (30-110); Lipase 320 U/L (23-300)
--- NOTE | 2017-10-09 15:52 | PN ---
PROGRESS NOTE DATE OF SERVICE: 10/09/2017. INTERVAL HISTORY: This 77-year-old gentleman who was admitted with acute cholecystitis also elevated bilirubin, AST, ALT. The patient had ERCP yesterday by Dr. Flores and ERCP showed no filling defect to suggest any retained common bile duct stones. The patient is on clear liquids. The LFTs are concerning today that the total bilirubin has come down to 3.9, and the AST is 151, ALT is 194, albumin is 3.4. No chest pain. No palpitations. No fever. EXAM: Alert and oriented x3. Pulse 82, blood pressure 150/77, respiration 17, temperature 97.7, pulse ox 98% on room air. HEENT: Conjunctivae normal. NECK: No jugular venous distention. CARDIOVASCULAR: S1, S2. RESPIRATORY: Breath sounds diminished in the bases. No rhonchi, no crackles. ABDOMEN: Soft, nontender. No mass palpable. LEGS: No edema. NERVOUS SYSTEM: No focal deficits. LABS: Noted. ASSESSMENT: 1. Acute cholecystitis. 2. Elevated bilirubin increased AST, ALT, possibly choledocholithiasis, status post ERCP showing no filling defects. 3. Hyponatremia, mildly improved. 4. History of gastroesophageal reflux disease. 5. Hypertension. 6. History of colon cancer. 7. History of bowel resection. 8. History of nicotine dependence. RECOMMENDATIONS AND DISCUSSION: I recommend to continue current management and symptomatic treatment, otherwise continue with the current medication including antibiotics. Repeat labs have been requested. Otherwise I would also request amylase and lipase also. Otherwise closely monitor with Dr. Le and Dr. Flores. Further recommendations to follow. MMODL / IJN: [id number] /
--- NOTE | 2017-10-09 22:52 | US ---
EXAMINATION TYPE: US abdomen limited DATE OF EXAM: 10/09/2017 COMPARISON: NONE CLINICAL HISTORY: RUQ pain. RUQ pain nausea and vomiting x 1 day. Exam limitations due to body habitu s. EXAM MEASUREMENTS: Liver Length: 15.6 cm Gallbladder Wall: 0.42 cm CBD: 0.49 cm Right Kidney: 9.9 x 5.1 x 4.6 cm Pancreas: Obscured by bowel gas Liver: Limited due to body habitus. Gallbladder: Internal echoes seen within with free fluid visualized. Evidence for sonographic Mohan's sign: No CBD: Limited Right Kidney: Hypoechoic area lower pole measuring 1.9 x 1.2 x 1.4 cm. IMPRESSION: There are nonshadowing gallstones. No dilated ducts. 1.5 cm right renal cortical cyst.
[2017-10-10 09:12] LABS: Albumin 2.8 g/dL (3.5-5.0); Bilirubin, Conjugated 0.6 mg/dL (0.0-0.3); Bilirubin, Delta 1.4 mg/dL (0.0-0.2); Bilirubin,Unconjugated 1.2 mg/dL (0.0-1.1); Calcium 7.9 mg/dL (8.4-10.2); Potassium 3.9 mmol/L (3.5-5.1); Total Bilirubin 3.2 mg/dL (0.2-1.3); Total Protein 5.3 g/dL (6.3-8.2)
[2017-10-10] MEDS: PIPERACILLIN-TAZOBACTAM 3.375 GM in DEXTROSE/WATER 1 50ML.BAG IVPB SCH ×3 (10:48→23:55)
[2017-10-10] MEDS: amLODIPine 10 MG TAB PO SCH (10:48)
[2017-10-10] MEDS: LISINOPRIL 20 MG TAB PO SCH (10:48)
[2017-10-10] MEDS: HEPARIN SODIUM,PORCINE 5,000 UNIT/ML 1 ML VIAL SQ SCH ×2 (10:48→20:11)
[2017-10-10] MEDS: PANTOPRAZOLE 40 MG/10 ML VIAL IV SCH (10:49)
[2017-10-10] MEDS: METOPROLOL SUCCINATE (ER) 25 MG TAB.ER.24H PO SCH (10:49)
[2017-10-10] MEDS: SODIUM CHLORIDE 0.9% 1,000 ML IV SCH ×2 (10:50→17:08)
[2017-10-10 11:13] LABS: Basophils # (A) 0.1 k/uL (0-0.2); Basophils % (A) 1 %; Eosinophils # (A) 0.3 k/uL (0-0.7); Eosinophils % (A) 3 %; HCT 41.9 % (39.0-53.0); Lymphocytes # (A) 1.2 k/uL (1.0-4.8); Lymphocytes % (A) 12 %; MCH 32.2 pg (25.0-35.0); MCHC 33.5 g/dL (31.0-37.0); MCV 96.4 fL (80.0-100.0); Mean Platelet Volume 7.7; Monocytes # (A) 0.8 k/uL (0-1.0); Monocytes % (A) 8 %; Neutrophils # (A) 7.5 k/uL (1.3-7.7); Neutrophils % (A) 75 %; Platelet Count 172 k/uL (150-450); RBC 4.34 m/uL (4.30-5.90); RDW 13.4 % (11.5-15.5)
--- NOTE | 2017-10-10 11:59 | P.PN ---
Subjective Progress Note Date: 10/10/17 Principal diagnosis: elevated liver enzymes Mild midepigastric LUQ discomfort. Afebrile. CMP pending. S/P ERCP; normal. US abdomen yesterday reported gallstones. CBD 0.49 cm. Objective - Vital Signs Vital signs: Vital Signs Temp 98.4 F 10/10/17 01:55 Pulse 70 10/10/17 01:55 Resp 16 10/10/17 01:55 BP 135/64 10/10/17 01:55 Pulse Ox 95 10/10/17 01:55 Intake & Output 10/09/17 10/10/17 10/10/17 18:59 06:59 18:59 Intake Total 0 Balance 0 Weight 87.09 kg 87.09 kg Intake: Oral 0 Other: Voiding Method Toilet # Voids 1 1 - Constitutional General appearance: Present: average body habitus - EENT Eyes: Present: normal appearance - Neck Neck: Present: normal ROM - Respiratory Respiratory: bilateral: CTA - Cardiovascular Rhythm: regular Heart sounds: normal: S1, S2 - Gastrointestinal Gastrointestinal Comment(s): mild midepigastric tenderness General gastrointestinal: Present: soft - Labs CBC & Chem 7: 10/10/17 08:11 10/09/17 06:40 Labs: Abnormal Lab Results - Last 24 Hours (Table) 10/09/17 10/09/17 Range/Units 06:40 11:34 Total Bilirubin 3.9 H (0.2-1.3) mg/dL Conjugated Bilirubin 1.3 H (0.0-0.3) mg/dL Delta Bilirubin 1.5 H (0.0-0.2) mg/dL AST 151 H (17-59) U/L ALT 194 H (21-72) U/L Alkaline Phosphatase 147 H (38-126) U/L Total Protein 6.0 L (6.3-8.2) g/dL Albumin 3.3 L (3.5-5.0) g/dL Lipase 320 H (23-300) U/L Microbiology - Last 24 Hours (Table) 10/07/17 21:06 Blood Culture - Preliminary Blood No Growth after 48 hours 10/07/17 00:20 Urine Culture - Final Urine,Clean Catch - Imaging and Cardiology US - abdomen: report reviewed (Dr. Fry) Assessment and Plan (1) Elevated liver enzymes Current Visit: Yes Status: Acute Code(s): R74.8 - ABNORMAL LEVELS OF OTHER SERUM ENZYMES SNOMED Code(s): 179159550 (2) S/P ERCP Current Visit: Yes Status: Acute Code(s): Z98.890 - OTHER SPECIFIED POSTPROCEDURAL STATES SNOMED Code(s): 224615220 (3) Gallstones Current Visit: Yes Status: Acute Code(s): K80.20 - CALCULUS OF GALLBLADDER W /O CHOLECYSTITIS W/O OBSTRUCTION SNOMED Code(s): 090033604 (4) History of colon cancer Narrative/Plan: s/p resection not requiring chemoradiation Current Visit: Yes Status: Acute Code(s): Z85.038 - PERSONAL HISTORY OF MALIGNANT NEOPLASM OF LARGE INTESTINE SNOMED Code(s): 445815241 Plan: 1. Await CMP. Hepatitis screen, AFP, CEA requested. DC on hold until CMP can be reviewed. If liver enzymes worsen or minimally improve will proceed with MRI liver. 2. Case discussed with Dr. Le, cholecystectomy is not planned at this time. Will follow with you. Assessment and plan of care discussed with Dr. Fry
--- NOTE | 2017-10-10 13:12 | P.PN ---
Subjective Progress Note Date: 10/10/17 Patient was seen and examined at bedside. He states that his right upper quadrant pain is mostly relieved but there is still some soreness. He is tolerating a diet. He denies any nausea or vomiting. Objective - Vital Signs Vital signs: Vital Signs Temp 98.4 F 10/10/17 01:55 Pulse 70 10/10/17 01:55 Resp 16 10/10/17 01:55 BP 135/64 10/10/17 01:55 Pulse Ox 95 10/10/17 01:55 Intake & Output 10/09/17 10/10/17 10/10/17 18:59 06:59 18:59 Intake Total 0 Balance 0 Weight 87.09 kg 87.09 kg Intake: Oral 0 Other: Voiding Method Toilet # Voids 1 1 - Constitutional General appearance: Present: cooperative, no acute distress - Respiratory Details: No difficulty with respiration - Gastrointestinal Gastrointestinal Comment(s): Soft, nontender, nondistended, no rebound, no guarding - Psychiatric Psychiatric: Present: A&O x's 3, appropriate affect - Labs CBC & Chem 7: 10/10/17 08:11 10/09/17 06:40 Labs: Abnormal Lab Results - Last 24 Hours (Table) 10/09/17 Range/Units 06:40 Lipase 320 H (23-300) U/L Microbiology - Last 24 Hours (Table) 10/07/17 21:06 Blood Culture - Preliminary Blood No Growth after 48 hours 10/07/17 00:20 Urine Culture - Final Urine,Clean Catch Assessment and Plan (1) Elevated liver enzymes Narrative/Plan: 77-year-old male with hyperbilirubinemia, right upper quadrant pain, cholelithiasis - ERCP was performed. There was no filling defect within the biliary tree. The gallbladder did light up after injection. There does not seem to be an obstruction of the cystic duct or common bile duct. - Leukocytosis has resolved - I did have a long discussion with the patient and the patient's family yesterday. Plan was originally for cholecystectomy, however, repeat hepatic function panel did show an increase in the total bilirubin to 3.9 from 3.3 along with an increase in direct bilirubin. We do know that there is no obvious obstructive process due to the patient having an ERCP. This direct hyperbilirubinemia does not seem to correlate with acute cholecystitis along with the fact that there is no cystic duct obstruction. Ultrasound was performed that did show cholelithiasis but no evidence of ductal dilation and pancreas was unable to be clearly visualized. - I discussed the case with the gastroenterology team. The plan is for awaiting the hepatic function panel that was ordered for today and making a further decision on possible MRCP. Any plan for surgical intervention is on hold at this point due to the uncertainty of a cholecystitis picture at this time. Current Visit: Yes Status: Acute Code(s): R74.8 - ABNORMAL LEVELS OF OTHER SERUM ENZYMES SNOMED Code(s): 149941192
--- NOTE | 2017-10-10 16:11 | PN ---
PROGRESS NOTE DATE OF SERVICE: 10/10/2017 This 77-year-old gentleman admitted with acute cholecystitis and other findings also had elevated LFTs. The patient had ERCP also. No chest pain. No palpitation. MRI is planned by Gastroenterology. The patient had multiple PVCs and chest pain early this morning. On exam, alert and oriented x3. Pulse 75, blood pressure 140/74, respirations 16, temperature 98.2, pulse ox 96% on room air. HEENT: Conjunctivae normal. NECK: No jugular venous distention. CARDIOVASCULAR SYSTEM: S1, S2 muffled. RESPIRATORY SYSTEM: Breath sounds diminished at the bases. No rhonchi. No crackles. ABDOMEN: Soft. No tenderness. No mass palpable. LEGS: No edema. No swelling. NERVOUS SYSTEM: No focal deficit. LABS: Total bilirubin is 3.2 and AST is 105 and ALT is 164. General improvement or stability. ASSESSMENT: 1. Acute cholecystitis. 2. Elevated bilirubin, increased AST, ALT, possibly choledocholithiasis, status post ERCP showing no filling defects. 3. Hyponatremia, mildly improved. 4. Premature ventricular contractions and chest discomfort. 5. History of gastroesophageal reflux disease. 6. Hypertension. 7. History of colon cancer. 8. History of bowel resection. 9. History of nicotine dependence. RECOMMENDATIONS AND DISCUSSION: I recommend to continue current medication, continue symptomatic treatment. Otherwise at this time I would recommend follow closely along with Surgery and Gastroenterology. Guarded prognosis. Further recommendations to follow. See orders for details. MMODL / IJN: [id number] /
--- NOTE | 2017-10-10 18:02 | MR ---
EXAMINATION TYPE: MR liver wo/w con DATE OF EXAM: 10/10/2017 COMPARISON: Ultrasound 10/09/[address] 10/11/2017 HISTORY: generalized abdominal pains CONTRAST: Standard multiplanar, multisequence MRI departmental protocol utilizing 7.5 mL intravenous Gadavist gadolinium contrast. FINDINGS: The gallbladder is distended with diffuse gallbladder wall thickening and circumferential p ericholecystic T2 hyperintense gadolinium-enhancing indistinctness within the right anterior pararena l space. There are no abnormal fluid collections. The intrahepatic and extrahepatic biliary tree are unremarka ble. No evidence of choledocholithiasis. Pancreas and pancreatic ductal anatomy unremarkable. The remainder of the abdominal solid and hollow viscera are unremarkable. No adenopathy. Vascular str uctures, visualized skeletal structures and visualized extra-abdominal structures are unremarkable. IMPRESSION: FINDINGS CONSISTENT WITH ACUTE CHOLECYSTITIS.
[2017-10-10 19:42] LABS: Alpha Fetoprotein, Tumor Mkr <2.5 ng/mL (0.0-7.9)
[2017-10-10 22:19] LABS: Hepatitis A Antibody IgM Non-Reactive (Non-Reactive); Hepatitis B Core IgM Non-Reactive (Non-Reactive)
[2017-10-11 02:47] VITALS: RESP 16
[2017-10-11] MEDS: SODIUM CHLORIDE 0.9% 1,000 ML IV SCH (04:47)
[2017-10-11 06:58] LABS: Basophils % (A) 0 %; Eosinophils # (A) 0.3 k/uL (0-0.7); Eosinophils % (A) 4 %; HCT 40.6 % (39.0-53.0); HGB 13.6 gm/dL (13.0-17.5); Lymphocytes % (A) 13 %; MCHC 33.5 g/dL (31.0-37.0); MCV 92.4 fL (80.0-100.0); Mean Platelet Volume 6.9; Monocytes # (A) 0.5 k/uL (0-1.0); Monocytes % (A) 6 %; Neutrophils # (A) 5.8 k/uL (1.3-7.7); Neutrophils % (A) 74 %; Platelet Count 213 k/uL (150-450); RDW 13.5 % (11.5-15.5); WBC 7.8 k/uL (3.8-10.6)
[2017-10-11 07:13] LABS: Albumin 2.6 g/dL (3.5-5.0); Calcium 7.9 mg/dL (8.4-10.2); Potassium 3.8 mmol/L (3.5-5.1); Total Bilirubin 2.6 mg/dL (0.2-1.3); Total Protein 5.1 g/dL (6.3-8.2)
[2017-10-11] MEDS: METOPROLOL SUCCINATE (ER) 25 MG TAB.ER.24H PO SCH (08:03)
[2017-10-11] MEDS: PANTOPRAZOLE 40 MG/10 ML VIAL IV SCH (08:03)
[2017-10-11] MEDS: PIPERACILLIN-TAZOBACTAM 3.375 GM in DEXTROSE/WATER 1 50ML.BAG IVPB SCH (08:30)
[2017-10-11 08:37] VITALS: BP 175/75; PULSE 102; TEMP 97.9
[2017-10-11] MEDS: HEPARIN SODIUM,PORCINE 5,000 UNIT/ML 1 ML VIAL SQ SCH (10:05)
[2017-10-11] MEDS: amLODIPine 10 MG TAB PO SCH (10:05)
[2017-10-11] MEDS: LISINOPRIL 20 MG TAB PO SCH (10:05)
--- NOTE | 2017-10-11 11:12 | P.PN ---
Subjective Progress Note Date: 10/11/17 Principal diagnosis: elevated liver enzymes Mild right posterior back pain. Afebrile. CMP improving total bilirubin 2.6. Hepatitis screen nonreactive. AFP CEA within normal limits. S/P ERCP; normal. US abdomen reported gallstones. CBD 0.49 cm. MRI liver reported findings consistent with acute cholecystitis. Lipase 452. White count 7.8. Objective - Vital Signs Vital signs: Vital Signs Temp 97.9 F 10/11/17 08:03 Pulse 102 H 10/11/17 08:03 Resp 16 10/11/17 08:03 BP 175/75 10/11/17 08:03 Pulse Ox 97 10/11/17 08:03 Intake & Output 10/10/17 10/11/17 10/11/17 18:59 06:59 18:59 Intake Total 360 Balance 360 Intake: Oral 360 Other: Voiding Method Toilet # Voids 3 1 - Exam General appearance: The patient is alert, oriented, in no acute distress. HET: Head is normocephalic and atraumatic. Pupils are equal and reactive. Oropharynx is clear without lesions. Neck: Supple without lymphadenopathy. Trachea midline. Heart: S1 S2. Regular rate and rhythm. Lungs: No crackles or wheezes are heard. Abdomen: Soft, mild soreness to the right posterior back, nondistended with bowel sounds. No peritoneal signs. No palpable organomegaly or masses. Extremities: Normal skin color and turgor. No cyanosis, rash, ulceration, clubbing, or edema. Radial and pedal pulses are 2/4 bilaterally. Neurological: No focal deficits. Strength and sensation are grossly intact. - Labs CBC & Chem 7: 10/11/17 06:18 10/11/17 06:36 Labs: Abnormal Lab Results - Last 24 Hours (Table) 10/10/17 10/11/17 Range/Units 08:14 06:36 Calcium 7.9 L 7.9 L (8.4-10.2) mg/dL Total Bilirubin 3.2 H 2.6 H (0.2-1.3) mg/dL Conjugated Bilirubin 0.6 H (0.0-0.3) mg/dL Unconjugated Bilirubin 1.2 H (0.0-1.1) mg/dL Delta Bilirubin 1.4 H (0.0-0.2) mg/dL AST 105 H 66 H (17-59) U/L ALT 164 H 129 H (21-72) U/L Alkaline Phosphatase 138 H (38-126) U/L Total Protein 5.3 L 5.1 L (6.3-8.2) g/dL Albumin 2.8 L 2.6 L (3.5-5.0) g/dL Lipase 452 H (23-300) U/L Microbiology - Last 24 Hours (Table) 10/07/17 21:06 Blood Culture - Preliminary Blood No Growth after 72 hours Assessment and Plan (1) Elevated liver enzymes Current Visit: Yes Status: Acute Code(s): R74.8 - ABNORMAL LEVELS OF OTHER SERUM ENZYMES SNOMED Code(s): 504110015 (2) S/P ERCP Current Visit: Yes Status: Acute Code(s): Z98.890 - OTHER SPECIFIED POSTPROCEDURAL STATES SNOMED Code(s): 799667425 (3) Gallstones Current Visit: Yes Status: Acute Code(s): K80.20 - CALCULUS OF GALLBLADDER W /O CHOLECYSTITIS W/O OBSTRUCTION SNOMED Code(s): 676279454 (4) History of colon cancer Narrative/Plan: s/p resection not requiring chemoradiation Current Visit: Yes Status: Acute Code(s): Z85.038 - PERSONAL HISTORY OF MALIGNANT NEOPLASM OF LARGE INTESTINE SNOMED Code(s): 853383772 Plan: 1. MRI findings discussed with patient. Keep nothing by mouth until surgery can evaluate. No further workup from a GI standpoint liver function tests are improving. Assessment plan of care discussed with Dr. Fry
--- NOTE | 2017-10-11 15:00 | P.DS ---
Providers Date of admission: 10/06/17 12:47 Attending physician: Bob Jackson MD Consults: 10/06/17 12:43 Consult Physician Stat Consulting Provider: Nura Le Consult Reason/Comments: Acute cholecystitis, duodenitis Do you want consulting provider notified?: Yes Consult Physician Stat Consulting Provider: Garrett Flores Consult Reason/Comments: Choledocholithiasis Do you want consulting provider notified?: Yes Primary care physician: Navid Whiteqvi Hospital Course: 77-year-old gentleman was admitted secondary to elevated liver enzymes right upper quadrant abdominal pain found to have cholelithiasis patient was initially believed to have cholecystitis patient was a valid by surgery then not recommending any surgical intervention patient underwent ERCP followed by MRCP ERCP did not reveal any common bile duct stones MRCP was suspicious for cholecystitis. Patient pain completely resolved at this point of time patient is a symptomatic at this time. Surgery is recommending discharged on Augmentin to follow up as an outpatient patient may need outpatient cholecystectomy. PHYSICAL EXAMINATION: GENERAL: The patient is alert and oriented x3, not in any acute distress. Well developed, well nourished. HEENT: Pupils are round and equally reacting to light. EOMI. No scleral icterus. No conjunctival pallor. Normocephalic, atraumatic. No pharyngeal erythema. No thyromegaly. CARDIOVASCULAR: S1 and S2 present. No murmurs, rubs, or gallops. PULMONARY: Chest is clear to auscultation, no wheezing or crackles. ABDOMEN: Soft, nontender, nondistended, normoactive bowel sounds. No palpable organomegaly. MUSCULOSKELETAL: No joint swelling or deformity. EXTREMITIES: No cyanosis, clubbing, or pedal edema. NEUROLOGICAL: Gross neurological examination did not reveal any focal deficits. SKIN: No rashes. For rest of the medical problems and hospitalization course please refer to Dr. West's dictation of progress note from yesterday Patient Condition at Discharge: Good Plan - Discharge Summary Discharge Rx Participant: No New Discharge Prescriptions: New Amoxicillin/Potassium Clav [Augmentin 875-125 Tablet] 1 tab PO Q12HR #14 tab No Action Benazepril [Lotensin] 40 mg PO DAILY amLODIPine BESYLATE [Norvasc] 10 mg PO DAILY Ranitidine HCl 150 mg PO BID Metoprolol Succinate [Toprol XL] 25 mg PO DAILY Multivitamins, Thera [Multivitamin (formulary)] 1 tab PO DAILY Discharge Medication List Benazepril [Lotensin] 40 mg PO DAILY 12/06/15 [History] amLODIPine BESYLATE [Norvasc] 10 mg PO DAILY 12/06/15 [History] Metoprolol Succinate [Toprol XL] 25 mg PO DAILY 10/06/17 [History] Multivitamins, Thera [Multivitamin (formulary)] 1 tab PO DAILY 10/06/17 [History ] Ranitidine HCl 150 mg PO BID 10/06/17 [History] Amoxicillin/Potassium Clav [Augmentin 875-125 Tablet] 1 tab PO Q12HR #14 tab [Rx] Follow up Appointment(s)/Referral(s): Navid Burleson MD [Primary Care Provider] - 10/19/17 11:40 am Nura Le DO [Doctor of Osteopathic Medicine] - 10/22/17 2:45 pm Ambulatory/Diagnostic Orders: Comprehensive Metabolic Panel [LAB.AMB] Time Frame: 10/15/17, Location: None Selected Patient Instructions/Handouts: Cholecystitis (GEN), Gallstones (DC), Low Fat Diet (DC) Activity/Diet/Wound Care/Special Instructions: Low-fat diet Discharge Disposition: HOME SELF-CARE
== END 2017-10-11 13:53 | disposition home or self-care (01) | DRG 445 ==
LOC: EC 10:10 → 3SUR 12:47
PROVIDERS: ADMIT Internal Medicine; ATTEND Internal Medicine
PROC: BF131ZZ Fluoroscopy of Gallbladder and Bile Ducts using Low Osmolar Contrast (ICD-10-PCS; 2017-10-08)
PROC: 0FJB8ZZ Inspection of Hepatobiliary Duct, Via Natural or Artificial Opening Endoscopic (ICD-10-PCS; principal; 2017-10-08 07:55)
DX: K80.62 Calculus of gallbladder and bile duct with acute cholecystitis without obstruction (principal); E87.1 Hypo-osmolality and hyponatremia; K82.1 Hydrops of gallbladder; I10 Essential (primary) hypertension; I49.3 Ventricular premature depolarization; E66.9 Obesity, unspecified; R07.9 Chest pain, unspecified; D72.829 Elevated white blood cell count, unspecified; K57.10 Diverticulosis of small intestine without perforation or abscess without bleeding; R74.8 Abnormal levels of other serum enzymes; R74.0 Nonspecific elevation of levels of transaminase and lactic acid dehydrogenase [LDH]; R79.89 Other specified abnormal findings of blood chemistry; M54.9 Dorsalgia, unspecified; K21.9 Gastro-esophageal reflux disease without esophagitis; Z85.038 Personal history of other malignant neoplasm of large intestine; Z82.49 Family history of ischemic heart disease and other diseases of the circulatory system; Z90.49 Acquired absence of other specified parts of digestive tract; Z87.891 Personal history of nicotine dependence; Z79.899 Other long term (current) drug therapy; Z82.3 Family history of stroke; Z88.8 Allergy status to other drugs, medicaments and biological substances; Z83.49 Family history of other endocrine, nutritional and metabolic diseases; Z68.31 Body mass index [BMI] 31.0-31.9, adult
CPT/HCPCS: 36415; 43260; 74177; 74183; 74330; 76705; 80053; 80074; 80076; 81001; 82105; 82150; 82248; 82378; 83690; 83735; 84484; 85025; 87040; 87086; 93005; 96361; 96365; 96375; 99285

== ENCOUNTER → 2019-12-16 | Outpatient (CLI) | payer MEDICARE, BC ==
--- NOTE | 2019-12-16 13:29 | CT ---
EXAMINATION TYPE: CT abdomen wo/w con DATE OF EXAM: 12/16/2019 COMPARISON: 10/06/2017 HISTORY: 79-year-old male R19.00, abdominal mass, history of colon cancer. TECHNIQUE: Contiguous axial scanning of the abdomen before and after following administration of 100 ml Isovue 300 IV contrast. Delayed images through the kidneys and coronal/sagittal reconstructions p erformed. CT DLP: 1466.8 mGycm Automated exposure control for dose reduction was used. FINDINGS: Heart normal size without pericardial effusion. Small hiatal hernia. 4 mm right middle lobe pulmonary nodule is unchanged compatible with a benign etiology. Lungs and ple ural spaces otherwise clear. No focal liver lesion or biliary ductal dilatation. Portal venous system is patent. Cholecystectomy clips. 1.9 cm diverticulum of the second portion of the duodenum projecting into the pancreatic head region. Adrenal glands, kidneys, spleen, and pancreas appear within normal limits. There is some mild tyler mesentery median and left paramedian mid abdomen that shows no progression a s compared to 10/06/2017 suggesting a chronic benign etiology. No dilated small bowel, free fluid, or free air. No mesenteric or retroperitoneal lymphadenopathy. Mild stool within the right side of the abdomen with prior ileocolonic anastomosis at the level of th e ascending colon. No pericolonic inflammatory change. Pelvis not imaged. Bones: Facet arthropathy lower lumbar spine. Endplate spondylosis lower thoracic spine. IMPRESSION: 1. SOME CENTRAL AND LEFT MIDABDOMINAL TYLER MESENTERY SHOWS NO PROGRESSION COMPARED TO 10/06/2017 S UGGESTING A CHRONIC POSTINFLAMMATORY ETIOLOGY. 2. SMALL HIATAL HERNIA. PREVIOUS PARTIAL RIGHT HEMICOLECTOMY. 3. INTERVAL CHOLECYSTECTOMY.
== END | disposition home or self-care (01) ==
LOC: RADCTMAIN 10:28
PROVIDERS: ATTEND Family Medicine
DX: K66.8 Other specified disorders of peritoneum (principal); K44.9 Diaphragmatic hernia without obstruction or gangrene; R19.00 Intra-abdominal and pelvic swelling, mass and lump, unspecified site; Z90.49 Acquired absence of other specified parts of digestive tract; Z91.048 Other nonmedicinal substance allergy status
CPT/HCPCS: 82565; 84520; 74170; 36415; Q9967

== ENCOUNTER → 2023-02-14 | Outpatient (CLI) | payer MEDICARE, BC ==
--- NOTE | 2023-02-16 11:20 | MR ---
EXAMINATION TYPE: MR Prostate wo/w con DATE OF EXAM: 02/14/2023 9:56 AM COMPARISON: None. CLINICAL INDICATION:Male, 82 years old with history of R97.20 elevated psa; Elevated PSA. Hx colon c ancer. TECHNIQUE: Multi-planar, multi-sequence imaging of the pelvis is performed prior to and following the uncomplicated administration of bolus intravenous gadolinium. CONTRAST: 9 Gadavist Interpretive Criteria: PI-RADS v2.1 SERUM PSA: 2.88 on 01/24/2023. 2.2 on 01/18/2022. 5. 6 and 01/19/2021. SURGICAL PATHOLOGY: 04/03/2010 biopsy FINDINGS: Prostatic dimensions: 6.4 x 5.9 x 5.1 cm. Ellipsoid Volume:100.83 (PSA density=0.03 ng/mL/mL) CENTRAL GLAND (Central and Transition Zones/CZ+TZ): High DWI/low ADC signal within the right central mid gland series 903 image 64. Area measures 9 x 6 m m. There is associated lower T2 signal. (PI-RADS 4) Median lobe hypertrophy with protrusion into the base of the bladder. (PI-RADS 4) PERIPHERAL ZONE (PZ): Bilateral linear, indistinct wedgelike areas of low ADC, and low T2 signal, No evidence of masslike a bnormality, or localized perfusional hypervascularity, to further suggest a focus of clinically signi ficant prostate cancer. (PI-RADS 2) SEMINAL VESICLES (SV): Symmetric and unremarkable. PERIPROSTATIC TISSUES: Unremarkable. LYMPH NODES: No enlarged pelvic lymph node. REMAINING PELVIS: Bladder wall is within normal limits given distention. No abnormal free or organized intrapelvic fluid collection. No pathologic bowel dilation or mural thickening. Right fat containing inguinal hernia and left fatty changes to the inguinal canal. OSSEOUS STRUCTURES: No suspicious osseous abnormality. Severe L4-L5 spinal canal stenosis. IMPRESSION: 1. PI-RADS 4 lesion right central zone mid gland measuring 9 x 6 mm 2. Substantial BPH, estimated gland volume 100.83 mL. 4. Severe L4-L5 spinal canal stenosis.
== END | disposition home or self-care (01) ==
LOC: RADMRIMAIN 08:39
PROVIDERS: ATTEND Urology
DX: N40.0 Benign prostatic hyperplasia without lower urinary tract symptoms (principal); M48.061 Spinal stenosis, lumbar region without neurogenic claudication; R97.20 Elevated prostate specific antigen [PSA]; Z85.038 Personal history of other malignant neoplasm of large intestine
CPT/HCPCS: 72197; A9585

== ENCOUNTER → 2023-03-12 | Outpatient (CLI) | payer MEDICARE, BC ==
[2023-03-12 16:43] LABS: Basophils # (A) 0.15 X 10*3/uL (0.00-0.10); Basophils % (A) 1.8 %; Eosinophils # (A) 0.11 X 10*3/uL (0.04-0.35); Eosinophils % (A) 1.3 %; HCT 46.1 % (39.6-50.0); HGB 15.6 g/dL (13.0-17.0); Lymphocytes # (A) 1.95 X 10*3/uL (0.90-5.00); Lymphocytes % (A) 22.9 %; MCH 31.6 pg (27.0-32.0); MCHC 33.8 g/dL (32.0-37.0); MCV 93.5 FL (80.0-97.0); Mean Platelet Volume 10.8 FL (9.5-12.2); Monocytes # (A) 0.63 X 10*3/uL (0.20-1.00); Monocytes % (A) 7.4 %; NRBC Per 100 WBC 0 X 10*3/uL (0.00-0.01); Neutrophils # (A) 5.64 X 10*3/uL (1.80-7.70); Neutrophils % (A) 66.4 %; Platelet Count 242 X 10*3/uL (140-440); RBC 4.93 X 10*6/uL (4.40-5.60); RDW 13.2 % (11.5-14.5)
[2023-03-12 16:51] LABS: BUN/Creat Ratio 11.69 Ratio (12.00-20.00); Blood Urea Nitrogen 15.2 mg/dL (9.0-27.0); Calcium 9.8 mg/dL (8.7-10.3); Carbon Dioxide 23.2 mmol/L (21.6-31.8); Chloride 105 mmol/L (96-109); Glucose 152 mg/dL (70-110); Potassium 4.1 mmol/L (3.5-5.5); Sodium 141 mmol/L (135-145)
== END | disposition home or self-care (01) ==
LOC: LABPAT 11:32
PROVIDERS: ATTEND Urology
DX: Z01.812 Encounter for preprocedural laboratory examination (principal); R97.20 Elevated prostate specific antigen [PSA]
CPT/HCPCS: 80048; 85025

== ENCOUNTER 2023-03-15 08:49 | Day surgery (SDC) | payer MEDICARE, BC ==
--- NOTE | 2023-03-14 20:30 | P.GSHP ---
History of Present Illness H&P Date: 03/14/23 Chief Complaint: Elevated PSA level The patient is an 82-year-old white male with a family history of prostate cancer. His PSA level has been rising and was most recently 8.6, with a percent free PSA of 33.5%. MRI of the prostate reveals a 100.83 mL prostate with a PI- RADS 4 lesion within the right central zone. - Cardiovascular Cardiovascular: Reports high blood pressure - Genitourinary (Male) Genitourinary: Reports nocturia Past Medical History Past Medical History: Cancer, GERD/Reflux, Hypertension, Renal Disease Additional Past Medical History / Comment(s): Hx. of colon cancer dx. in 2012. States did not need chemo or radiation therapy. low kidney function levels are at 57 sees tsering History of Any Multi-Drug Resistant Organisms: None Reported Past Surgical History: Bowel Resection, Cholecystectomy, Hernia Repair, Orthopedic Surgery Additional Past Surgical History / Comment(s): Rotator cuff R shoulder 2001, surgery for colon cancer. Past Anesthesia/Blood Transfusion Reactions: No Reported Reaction Smoking Status: Former smoker - Past Family History Mother Family Medical History: Hypertension, Myocardial Infarction ([place]), Thyroid Disorder Additional Family Medical History / Comment(s): mom is age 97 Sister(s) Family Medical History: CVA/TIA Father Additional Family Medical History / Comment(s): WHEN PT WAS 18 MONTHS OLD- ELECTROCUTED AT WORK Medications and Allergies Home Medications Medication Instructions Recorded Confirmed Type Benazepril [Lotensin] 40 mg PO DAILY 12/06/15 03/13/23 History amLODIPine BESYLATE [Norvasc] 10 mg PO DAILY 12/06/15 03/13/23 History Metoprolol Succinate [Toprol XL] 25 mg PO DAILY 10/06/17 03/13/23 History Multivitamins, Thera [Multivitamin 1 tab PO DAILY 10/06/17 03/13/23 History (formulary)] Famotidine 20 mg PO BID 03/13/23 03/13/23 History Vit D3 (Unk) 1 tab PO DAILY 03/13/23 03/13/23 History Allergies Allergy/AdvReac Type Severity Reaction Status Date / Time povidone-iodine Allergy Rash/Hives Verified 03/13/23 12:27 [From Betadine] soap [From Betadine] Allergy Rash/Hives Verified 03/13/23 12:27 Surgical - Exam - General well developed, well nourished, no distress - Respiratory normal respiratory effort - Genitourinary normal penis with no external lesions, testicles non-tender - Rectum Rectum: normal sphincter tone, no masses, other (Prostate moderately enlarged and smooth) - Psychiatric oriented to time, oriented to person, oriented to place, speech is normal, memory intact Assessment and Plan (1) Elevated prostate specific antigen [PSA] Status: Acute Code(s): R97.20 - ELEVATED PROSTATE SPECIFIC ANTIGEN [PSA] SNOMED Code(s): 885515502 Plan: The patient will undergo MRI-Ultrasound fusion transrectal biopsies of the prostate. The procedure has been reviewed in detail with the patient. He has been made aware of potential risks, which include anesthesia, bleeding, and infection. He is also aware that a negative biopsy does not completely rule out prostate cancer.
[~2023-03-15 08:49] MED LIST: GENTAMICIN 110 MG in SODIUM CHLORIDE 0.9% 100 ML IVPB PRN; HYDROmorphone 0.5 MG/0.5 ML SYRINGE IVP PRN; LACTATED RINGERS 1,000 ML IV SCH; LEVOFLOXACIN 500MG-D5W PMX 500 MG in DEXTROSE/WATER 1 100ML.BAG IVPB PRN; ONDANSETRON 4 MG/2 ML VIAL IVP ONE
[2023-03-15] MEDS ORDERED: GENTAMICIN 110 MG in SODIUM CHLORIDE 0.9% 100 ML IM PRN (09:29)
[2023-03-15] MEDS ORDERED: GENTAMICIN 40 MG/ML 2 ML VIAL IM ONE (09:45)
[2023-03-15] MEDS ORDERED: LACTATED RINGERS 1,000 ML IV ONE (09:55)
[2023-03-15 10:23] VITALS: RESP 16; TEMP 97.3
[2023-03-15] MEDS ORDERED: PROPOFOL 10 MG/ML 20 ML VIAL IV ONE (10:42)
--- NOTE | 2023-03-15 11:12 | P.OP ---
Date of Procedure: 03/15/23 Preoperative Diagnosis: Elevated PSA level Postoperative Diagnosis: Same Procedure(s) Performed: MRI ultrasound guided fusion biopsies of the prostate Anesthesia: MAC Surgeon: Kenton Ramesh Estimated Blood Loss (ml): 10 IV fluids (ml): 200 Indications for Procedure: The patient is an 82-year-old white male with a family history of prostate cancer. His PSA level has been rising and was most recently 8.6, with a percent free PSA of 33.5%. MRI of the prostate reveals a 100.83 mL prostate with a PI- RADS 4 lesion within the right central zone. Operative Findings: No hypoechoic lesions seen on ultrasound. Description of Procedure: The patient was taken to the operating room and placed in the left lateral decubitus position. The Octamer transrectal ultrasound probe was placed intrarectally. It was then placed within the stand of the [employer] MRI/TRUS Fusion for Prostate Biopsy system. The prostate was imaged in both the axial and sagittal planes, revealing a prostate volume of 96 mL. Using the Biopty gun, 3 biopsies were obtained from the target lesion in the anterior right mid peripheral zone. The remaining 12 biopsies of the peripheral zone were obtained utilizing a standard template. Once the procedure was completed, the ultrasound probe was removed. The patient tolerated the procedure well was taken to the recovery room stable condition.
[2023-03-15 11:31] VITALS: BP 132/76; PULSE 81
== END 2023-03-15 11:58 | disposition home or self-care (01) ==
LOC: OR 08:49
PROVIDERS: ATTEND Urology
DX: R97.20 Elevated prostate specific antigen [PSA] (principal); K21.9 Gastro-esophageal reflux disease without esophagitis; I10 Essential (primary) hypertension; N28.9 Disorder of kidney and ureter, unspecified; Z85.038 Personal history of other malignant neoplasm of large intestine; Z90.49 Acquired absence of other specified parts of digestive tract; Z98.890 Other specified postprocedural states; Z87.891 Personal history of nicotine dependence; Z83.49 Family history of other endocrine, nutritional and metabolic diseases; Z82.49 Family history of ischemic heart disease and other diseases of the circulatory system; Z79.1 Long term (current) use of non-steroidal anti-inflammatories (NSAID); Z79.899 Other long term (current) drug therapy; Z80.42 Family history of malignant neoplasm of prostate
CPT/HCPCS: 55700; 76942; 88305; J1580; J1956; J2704

== ENCOUNTER → 2023-05-11 | Outpatient (CLI) | payer MEDICARE, BC ==
--- NOTE | 2023-05-15 13:26 | PE ---
EXAMINATION TYPE: PET CT fusion skull to thigh DATE OF EXAM: 05/11/2023 COMPARISON: MRI 02/14/2023 Prior PET/CT: None HISTORY: Prostate cancer TECHNIQUE: Following the intravenous administration of 5.4 mCi of gallium-68 Illuccix, whole body im ages are performed from the skull base to the midthigh. Images are reviewed on the computer in the c oronal, axial, and sagittal planes. Reconstructed rotating images are created on independent worksta tion and reviewed on the computer. A localization and attenuation correction CT is performed in con junction with the PET scan. DLP: 795.88 mGycm SCAN: Initial FINDINGS: Normal uptake is within the salivary glands and liver and spleen. NECK: No abnormal uptake THORAX: No abnormal uptake ABDOMEN: No abnormal uptake PELVIS: Mild uptake is in the lateral aspect of the right portion of the prostate with an SUV of 6.8. No additional abnormal uptake within the pelvis is evident. OSSEOUS STRUCTURES: No abnormal uptake LOCALIZATION CT: Prostate is prominent. COMPARISON: None IMPRESSION: 1. Uptake within the lateral right prostate correlates with the patient's reported neoplasm. 2. No suspicious changes to suggest metastatic disease.
== END | disposition home or self-care (01) ==
LOC: RADPETMAIN 13:46
PROVIDERS: ATTEND Radiology Radiation Oncology
DX: C61 Malignant neoplasm of prostate (principal)
CPT/HCPCS: 78815; A9596

== ENCOUNTER → 2023-05-30 | Outpatient (CLI) | payer MEDICARE, BC ==
[2023-05-31 03:49] LABS: Basophils # (A) 0.09 X 10*3/uL (0.00-0.10); Eosinophils # (A) 0.15 X 10*3/uL (0.04-0.35); Eosinophils % (A) 1.6 %; HGB 15.4 g/dL (13.0-17.0); Lymphocytes # (A) 2.03 X 10*3/uL (0.90-5.00); Lymphocytes % (A) 21.9 %; MCH 31.4 pg (27.0-32.0); MCHC 32.8 g/dL (32.0-37.0); MCV 95.9 FL (80.0-97.0); Mean Platelet Volume 11.2 FL (9.5-12.2); Monocytes # (A) 0.78 X 10*3/uL (0.20-1.00); Monocytes % (A) 8.4 %; NRBC Per 100 WBC 0 X 10*3/uL (0.00-0.01); Neutrophils # (A) 6.19 X 10*3/uL (1.80-7.70); Neutrophils % (A) 66.9 %; Platelet Count 176 X 10*3/uL (140-440); RDW 13.1 % (11.5-14.5); WBC 9.26 X 10*3/uL (4.50-10.00)
[2023-05-31 03:50] LABS: BUN/Creat Ratio 10.15 Ratio (12.00-20.00); Blood Urea Nitrogen 13.2 mg/dL (9.0-27.0); Calcium 9.8 mg/dL (8.7-10.3); Carbon Dioxide 26.1 mmol/L (21.6-31.8); Chloride 102 mmol/L (96-109); Glucose 106 mg/dL (70-110); Potassium 4.1 mmol/L (3.5-5.5); Sodium 141 mmol/L (135-145)
== END | disposition home or self-care (01) ==
LOC: LABPAT 12:51
PROVIDERS: ATTEND Urology
DX: Z01.812 Encounter for preprocedural laboratory examination (principal); C61 Malignant neoplasm of prostate
CPT/HCPCS: 36415; 80048; 85025

== ENCOUNTER 2023-06-07 11:57 | Day surgery (SDC) | payer MEDICARE, BC ==
--- NOTE | 2023-06-03 21:10 | P.GSHP ---
History of Present Illness H&P Date: 06/03/23 Chief Complaint: Prostate cancer The patient is an 83-year-old white male with a family history of prostate cancer. His PSA level has been rising and was most recently 8.6, with a percent free PSA of 33.5%. MRI of the prostate reveals a 100.83 mL prostate with a PI- RADS 4 lesion within the right central zone. He underwent MRI fusion biopsies of the prostate in March 15, 2023. Biopsies of the target lesion showed Donte 7 (4+3) adenocarcinoma of the prostate. A PSMA PET/CT scan showed no metastases. Patient has seen Dr. Spann and has elected to be treated with IMRT in conjunction with 6 months of androgen deprivation therapy. He received a Lupron injection May 28 and now comes for SpaceOAR implant. - Cardiovascular Cardiovascular: Reports high blood pressure - Genitourinary (Male) Genitourinary: Reports nocturia Past Medical History Past Medical History: Cancer, GERD/Reflux, Hypertension Additional Past Medical History / Comment(s): Hx. of colon cancer dx. in 2012. States did not need chemo or radiation therapy.HAD PNE VACCINE AFTER AGE 67 NOT SURE OF DATE. History of Any Multi-Drug Resistant Organisms: None Reported Past Surgical History: Bowel Resection, Orthopedic Surgery Additional Past Surgical History / Comment(s): Rotator cuff R shoulder 2001, surgery for colon cancer.hernia repair Past Anesthesia/Blood Transfusion Reactions: No Reported Reaction Smoking Status: Former smoker - Past Family History Mother Family Medical History: Hypertension, Myocardial Infarction (ME), Thyroid Disorder Additional Family Medical History / Comment(s): mom is age 97 Sister(s) Family Medical History: CVA/TIA Father Additional Family Medical History / Comment(s): WHEN PT WAS 18 MONTHS OLD- ELECTROCUTED AT WORK Medications and Allergies Home Medications Medication Instructions Recorded Confirmed Type Benazepril [Lotensin] 40 mg PO DAILY 12/06/15 03/15/23 History amLODIPine BESYLATE [Norvasc] 10 mg PO DAILY 12/06/15 03/15/23 History Metoprolol Succinate [Toprol XL] 25 mg PO DAILY 10/06/17 03/15/23 History Multivitamins, Thera [Multivitamin 1 tab PO DAILY 10/06/17 03/15/23 History (formulary)] Famotidine 20 mg PO BID 03/13/23 03/15/23 History Vit D3 (Unk) 1 tab PO DAILY 03/13/23 03/15/23 History Ciprofloxacin HCl [Cipro] 500 mg PO Q12HR #3 tab 03/15/23 Rx Allergies Allergy/AdvReac Type Severity Reaction Status Date / Time povidone-iodine Allergy Rash/Hives Verified 03/15/23 09:48 [From Betadine] soap [From Betadine] Allergy Rash/Hives Verified 03/15/23 09:48 Surgical - Exam - General well developed, well nourished, no distress - Respiratory normal respiratory effort - Abdomen Abdomen: soft, non tender, no guarding, no rigid, no rebound - Genitourinary normal penis with no external lesions, testicles non-tender - Rectum Rectum: normal sphincter tone, no masses, other (Prostate enlarged but smooth) - Psychiatric oriented to time, oriented to person, oriented to place, speech is normal, memory intact Assessment and Plan (1) Malignant neoplasm of prostate Status: Acute Code(s): C61 - MALIGNANT NEOPLASM OF PROSTATE SNOMED Code(s): 754802995 Plan: The SpaceOar implant has been reviewed in detail with the patient. He understands that the rationale for this is to create separation between the prostate and rectum, thus reducing the risk of radiation proctitis. The material begins to breakdown 12-13 weeks following implant, and is reabsorbed by the body. Risks include anesthesia, bleeding, infection, and perineal discomfort. He understands that if the rectal wall is perforated the procedure will need to be aborted.
[2023-06-04 10:44] VITALS: BMI 31.1
[~2023-06-07 11:57] MED LIST changes: -GENTAMICIN 110 MG in SODIUM CHLORIDE 0.9% 100 ML IVPB PRN; -LACTATED RINGERS 1,000 ML IV SCH; -LEVOFLOXACIN 500MG-D5W PMX 500 MG in DEXTROSE/WATER 1 100ML.BAG IVPB PRN; -ONDANSETRON 4 MG/2 ML VIAL IVP ONE
[2023-06-07] MEDS: LACTATED RINGERS 1,000 ML IV SCH (12:42)
[2023-06-07 12:43] VITALS: TEMP 98.5
[2023-06-07] MEDS ORDERED: PROPOFOL 10 MG/ML 20 ML VIAL IV ONE (12:44)
[2023-06-07] MEDS ORDERED: KETAMINE HCL IN 0.9 % NACL 50 MG/5 ML SYRINGE ONE (12:44)
[2023-06-07] MEDS ORDERED: fentaNYL (PF) 50 MCG/ML 2 ML AMP ONE (12:44)
[2023-06-07] MEDS: ONDANSETRON 4 MG/2 ML VIAL IVP ONE (12:47)
[2023-06-07] MEDS: DEXAMETHASONE SOD PHOSPHATE 4 MG/ML 1 ML VIAL IV ONE (12:47)
[2023-06-07] MEDS: LIDOCAINE 2% (PF) 20 MG/ML 10 ML AMP SQ ONE (13:02)
--- NOTE | 2023-06-07 13:11 | P.OP ---
Date of Procedure: 06/07/23 Preoperative Diagnosis: Adenocarcinoma of the prostate Postoperative Diagnosis: Same Procedure(s) Performed: SpaceOAR implant Anesthesia: MAC Surgeon: Kenton Ramesh Estimated Blood Loss (ml): 5 IV fluids (ml): 100 Pathology: none sent Condition: stable Disposition: PACU Indications for Procedure: The patient is an 83-year-old white male with a family history of prostate cancer. His PSA level has been rising and was most recently 8.6, with a percent free PSA of 33.5%. MRI of the prostate reveals a 100.83 mL prostate with a PI- RADS 4 lesion within the right central zone. He underwent MRI fusion biopsies of the prostate in March 15, 2023. Biopsies of the target lesion showed Donte 7 (4+3) adenocarcinoma of the prostate. A PSMA PET/CT scan showed no metastases. Patient has seen Dr. Spann and has elected to be treated with IMRT in conjunction with 6 months of androgen deprivation therapy. He received a Lupron injection May 28 and now comes for SpaceOAR implant. Operative Findings: 1 cm separation created between prostate and rectum. Description of Procedure: The patient was taken to the operating room and placed in the dorsolithotomy position, with his legs supported in Arash stirrups. The external genitalia was prepped and draped sterilely. The Brandwatch transrectal ultrasound probe was placed intrarectally. The prostate was imaged. The probe was then placed within the stabilizing stand. A spinal needle was advanced under ultrasonic guidance to the level of the urogenital diaphragm, and lidocaine was used to infiltrate the tissues as the needle was withdrawn. Next, the SpaceOAR needle was passed through the midline of the perineum, 1-2 cm anterior to the anal opening. The needle was slowly advanced under ultrasonic guidance until the needle tip was located within the fat plane between the prostate and rectum, at the level of the mid prostate gland. The needle was confirmed to be midline on the axial imaging. A small amount of normal saline was injected for hydrodissection. Next, the SpaceOAR components were mixed and loaded into the Y connector per protocol. The Y connector was then connected to the needle, and the components were injected slowly over a course of approximately 12 seconds. A total of 11 ml was injected. Significant distance was created between the prostate and rectum, as desired. It should be noted that at no point was there any concern of rectal perforation. The needle was withdrawn, as well as the transrectal ultrasound probe, and the procedure was terminated. The patient tolerated the procedure well and was taken to the recovery room in stable condition.
[2023-06-07 13:16] VITALS: PULSE 82; RESP 16
[2023-06-07 13:47] VITALS: BP 150/74
== END 2023-06-07 13:40 | disposition home or self-care (01) ==
LOC: OR 11:57
PROVIDERS: ATTEND Urology
DX: C61 Malignant neoplasm of prostate (principal); I10 Essential (primary) hypertension; K21.9 Gastro-esophageal reflux disease without esophagitis; Z85.038 Personal history of other malignant neoplasm of large intestine; Z87.891 Personal history of nicotine dependence; Z83.49 Family history of other endocrine, nutritional and metabolic diseases; Z82.3 Family history of stroke; Z79.899 Other long term (current) drug therapy; Z91.041 Radiographic dye allergy status; Z88.8 Allergy status to other drugs, medicaments and biological substances
CPT/HCPCS: 55874; J1100; J2001; J0690; J2405; J3010; J2704

== ENCOUNTER → 2023-10-01 | Outpatient (CLI) | payer MEDICARE, BC | END | disposition home or self-care (01) | LOC: LABWHC1 11:56 | PROVIDERS: ATTEND Radiology Radiation Oncology | DX: C61 Malignant neoplasm of prostate (principal) | CPT/HCPCS: 36415; 84403 ==

== ENCOUNTER → 2023-12-10 | Outpatient (CLI) | payer MEDICARE, BC | END | disposition home or self-care (01) | LOC: LABWHC1 12:37 | PROVIDERS: ATTEND Radiology Radiation Oncology | DX: C61 Malignant neoplasm of prostate (principal) | CPT/HCPCS: 36415; 84153 ==

== ENCOUNTER → 2024-06-13 | Outpatient (CLI) | payer MEDICARE ==
[2024-06-13 17:59] LABS: Prostate Specific Antigen 0.12 ng/mL (0.000-6.500)
== END | disposition home or self-care (01) ==
LOC: LABWHC1 11:48
PROVIDERS: ATTEND Radiology Radiation Oncology
DX: C61 Malignant neoplasm of prostate (principal)
CPT/HCPCS: 36415; 84153; 84403